=== PATIENT | male | born 1955 | race Caucasian/White ===

== ENCOUNTER 2018-11-28 22:47 | Observation (INO) | payer MEDICARE, OTHER, SELFPAY ==
--- NOTE | 2018-11-28 23:24 | RAD ---
XR Chest 1 View Portable HISTORY: Chest pain and shortness of breath COMPARISON: 11/30/2015 study FINDINGS: Heart size within normal limits. Postop sternotomy changes are present. The lungs are clear of infiltrates. No signs of failure. IMPRESSION: No active intrathoracic disease.
[2018-11-28] MEDS ORDERED: Lorazepam 2 MG/ML VIAL ONE (23:28)
[2018-11-28 23:38] LABS: #Lymphocytes 0.7 thou/uL (1.20-3.40); #Monocytes 0.7 thou/uL (0.11-0.59); #Neutrophils 6.3 thou/uL (1.40-6.50); %Basophils 0.4 % (0.0-1.0); %Eosinophils 0.5 % (0.0-10.0); %Lymphocytes 9.4 % (21.0-51.0); %Monocytes 9.4 % (0.0-10.0); %Neutrophils 80.4 % (42.0-75.0); Hemoglobin 13.7 g/dL (14.0-18.0); Mean Corpuscular HGB CONC 34.8 g/dL (32.0-36.0); Mean Corpuscular Hemoglobin 35.4 pg (27.0-31.0); Mean Platelet Volume 5.9 fL (7.4-10.4); Platelet Count 188 thou/uL (130-400); RBC Distribution Width 11.4 % (11.5-14.5); Red Blood Cell (RBC) Count 3.86 mill/uL (4.70-6.10); White Blood Cell (WBC) Count 7.8 thou/uL (4.8-10.8)
[2018-11-28] MEDS ORDERED: Multivitamins, Adult 10 ML, Thiamine HCl 100 MG, Folic Acid 1 MG in Dextrose 5 %-0.45 %... IV SCH (23:45)
[2018-11-28 23:58] LABS: ALT (SGPT) 32 U/L (8-55); AST (SGOT) 59 U/L (5-34); Alkaline Phosphatase 130 U/L (40-110); Anion Gap 17 mmol/L (10-20); BUN (Urea Nitrogen) 10 mg/dL (8.4-25.7); Bilirubin, Total 1.5 mg/dL (0.2-1.2); CK (CPK) 135 U/L (30-200); Calc. Creatinine Clearance 0 mL/min (70-130); Calcium 9.4 mg/dL (7.8-10.44); Carbon Dioxide 20 mmol/L (23-31); Chloride 103 mmol/L (98-107); Estimated GFR-MDRD 56; Globulin 2.7 g/dL (2.4-3.5); Glucose 127 mg/dL (80-115); Potassium 4.1 mmol/L (3.5-5.1); Protein, Total 6.7 g/dL (5.8-8.1); Sodium 136 mmol/L (136-145)
[2018-11-29] MEDS ORDERED: Aspirin 325 MG TAB ONE (02:17)
[2018-11-29 03:14] LABS: Troponin I 0.015 ng/mL (< 0.028)
[2018-11-29 04:31] VITALS: BMI 20.2
[2018-11-29] MEDS ORDERED: Acetaminophen 325 MG TAB PO PRN (04:40)
--- NOTE | 2018-11-29 05:34 | PDOC.FPRHP ---
- History of Present Illness Chief Complaint: Chest Pain History of Present Illness: Pt is a 63 yo male with PMH significant for cardiac bypass 20 years ago, alcohol abuse, and has not seen a PCP, ssis ssrs developer in multiple years who presents with a 6 month history of dyspnea and chest pain. Pt states earlier in the evening he got into an argument with his who has a psych illness. EMS was called and decided pt did not look well. Pt agreed to being seen in the ED. He states his symptoms have been ongoing for 6 months and becomes dyspneic with exertion. He endorsed chest pain after further questioning. It is substernal in nature, non-radiating, pressure-like. Pt did not become diaphoretic, N/V. He states he has had this chest pain off and on for quite some time but could not give exact time scale. ED Course: In the ED he was found to have normal vitals. EKG, CXR WNL. Trop 0.02. He did have an elevated AST. Pt given banana bag, ativan and aspirin. - Allergies/Adverse Reactions Allergies Allergy/AdvReac Type Severity Reaction Status Date / Time No Known Drug Allergies Allergy Verified 06/24/16 22:32 - Home Medications Medication Instructions Recorded Confirmed Type Multivitamin [Daily Vitamin 1 each PO DAILY #90 tablet 06/28/16 11/29/18 Rx Formula] Aspirin [Ecotrin Low Strength] 81 mg PO DAILY #30 tab 11/29/18 Rx Atorvastatin Calcium [Lipitor] 40 mg PO HS #30 tab 11/29/18 Rx - History PMHx: hx of cardiac bypass 20 years ago PSHx: cardiac bypass FHx: none Social: alcohol abuse, hx of tobacco use 20 yrs ago, denies drug use - Review of Systems General: denies: fever/chills, weight/appetite/sleep changes, night sweats ENT: denies: nasal congestion, rhinorrhea Respiratory: reports: shortness of breath, exercise intolerance. denies: cough , congestion Cardiovascular: reports: chest pain. denies: palpitation, edema, orthopnea Gastrointestinal: denies: nausea, vomiting, diarrhea, constipation, abdominal pain Genitourinary: denies: dysuria, polyuria Skin: denies: rashes, lesions Musculoskeletal: denies: pain, stiffness Neurological: denies: numbness, syncope, seizure Psychological: reports: anxiety - Vital signs BP: [134/96] HR: [77] RR: [26] Tmax: [] Pox: [100]% on [RA] Wt: [63.9 kg] - Physical Exam Constitutional: NAD, awake, alert and oriented HEENT: normocephalic and atraumatic, EOMI Neck: FROM, trachea midline Chest: no-tender to palpation, no lesions Heart: RRR, normal S1/S2, no murmurs/rubs/gallops, pulses present, no edema Lungs: CTAB, no respiratory distress, good air movement, no wheezing Musculoskeletal: normal structure, ROM grossly normal Neurological: no focal deficit, CN II-XII intact -Neurological: shooting pains in legs Skin: no rash/lesions, capillary refill <2 seconds Heme/Lymphatic: no purpura, no petechia Psychiatric: good judgment and insight, intact recent and remote memory FMR H&P: Results - Labs Result Diagrams: 11/28/18 23:29 11/29/18 08:38 Lab results: WBC 7.8 thou/uL (4.8-10.8) 11/28/18 23:29 Hgb 13.7 g/dL (14.0-18.0) L 11/28/18 23:29 Hct 39.2 % (42.0-52.0) L 11/28/18 23:29 MCV 101.0 fL (78.0-98.0) H 11/28/18 23:29 Plt Count 188 thou/uL (130-400) 11/28/18 23:29 Neutrophils % 80.4 % (42.0-75.0) H 11/28/18 23:29 Sodium 136 mmol/L (136-145) 11/28/18 23:29 Potassium 4.1 mmol/L (3.5-5.1) 11/28/18 23:29 Chloride 103 mmol/L (98-107) 11/28/18 23:29 Carbon Dioxide 20 mmol/L (23-31) L 11/28/18 23:29 BUN 10 mg/dL (8.4-25.7) 11/28/18 23:29 Creatinine 1.29 mg/dL (0.7-1.3) 11/28/18 23:29 Glucose 127 mg/dL (80-115) H 11/28/18 23:29 Calcium 9.4 mg/dL (7.8-10.44) 11/28/18 23:29 Total Bilirubin 1.5 mg/dL (0.2-1.2) H 11/28/18 23:29 AST 59 U/L (5-34) H 11/28/18 23:29 ALT 32 U/L (8-55) 11/28/18 23:29 Alkaline Phosphatase 130 U/L (40-110) H 11/28/18 23:29 Creatine Kinase 135 U/L (30-200) 11/28/18 23:29 B-Natriuretic Peptide 73.3 pg/mL (0-100) 11/28/18 23:29 Serum Total Protein 6.7 g/dL (5.8-8.1) 11/28/18 23: Albumin 4.0 g/dL (3.4-4.8) 11/28/18 23:29 FMR H&P: A/P - Problem List (1) Anxiety Status: Acute Code(s): F41.9 - ANXIETY DISORDER, UNSPECIFIED (2) Elevated AST (SGOT) Status: Acute Code(s): R74.0 - NONSPEC ELEV OF LEVELS OF TRANSAMNS & LACTIC ACID DEHYDRGNSE (3) Chest pain Status: Acute Code(s): R07.9 - CHEST PAIN, UNSPECIFIED (4) Hx of cardiac arrest Status: Acute Code(s): Z86.74 - PERSONAL HISTORY OF SUDDEN CARDIAC ARREST (5) Hx of heart bypass surgery Status: Acute Code(s): Z95.1 - PRESENCE OF AORTOCORONARY BYPASS GRAFT (6) Alcohol abuse Status: Chronic Code(s): F10.10 - ALCOHOL ABUSE, UNCOMPLICATED - Plan Pt is a 63 yo male with PMH significant for cardiac bypass 20 years ago who presents for shortness of breath and chest pain. # Chest Pain # Hx of cardiac bypass Atypical in nature. Pt says pain in chronic, comes and goes often. He has hx of cardiac bypass but does not follow up with PCP or Production Sampler. - Given aspirin in the Emergency Department - Will defer treatment/work up to day team as pt is stable at this time. Pt is NPO at this time depending on workup. - Consider LFT's - admit to tele # Anxiety Ativan given in ED. Remained mildly anxious on exam. - monitor, consider atarax # Hx of Alcohol Abuse # Neuropathy Neuropathy possibly secondary to chronic alcohol use. - pending alcohol level - ASE protocal initiated - banana bag in ED Diet: NPO Fluids: None VTE Prophylaxis: SCD's Code Status : full Dispo: Pt is stable, admit for observation of chest pain. FMR H&P: Upper Level - Pertinent history 63 yo M w/ PMH of cad and cabg >20 years ago presents to ED with cc of 6 month h /o sob. Pt denies any exaerbating or remitting factors. Reports he was fighithing with his this evening and became acutely more sob. Some mild left sided chest pressure. Some occasional Nausea. No fever, chills SOB. Workup in the ED was benign and troponins were negative x2. EKQ was WNL. - Pertinent findings ROS: As above PE: GenL NAD resting comfortably in bed HEENT: NCAT CV: RRR No MRG, no jvd or hepatojugular reflux Resp:Ctabl no wrr Abd: soft NTND bsx4 Extremities: No edema Neuo: No focal deficit - Plan Date/Time: 11/29/18 2941 I, Ck Lozano, , have evaluated this patient and agree with findings/ plan as outlined by sport intern resident. Pertinent changes/additions are listed here. 1) Atypical chest pain - trend trops - consider am stress and echo although no findings concerning for HF or overload 2) CAD - intiate HI statin 3) h/o alcohol abuse - check alcohol level, last reported drink 3 weeks ago - ase protocol Dispo: stable, admit to trend trops and consider am stress and echo. Addendum - Attending - Attending Attestation Date/Time: 11/29/18 0942 I personally evaluated the patient and discussed the management with Dr. Pearson. I agree with the History, Examination, Assessment and Plan documented above with any addition or exceptions noted below. The patient presents with substernal non-radiating chest pain after a stressful event with his . He will have a stress test. EKG normal. AST elevated, will check ruq ultrasound. If stress is negative can likely dc home.
[2018-11-29 06:13] LABS: Troponin I 0.023 ng/mL (< 0.028)
--- NOTE | 2018-11-29 06:14 | PDOC.FM ---
- Objective Vital Signs & Weight: Vital Signs (12 hours) Pulse Resp BP Pulse Ox 11/29/18 04:31 74 18 155/88 H 94 L Weight Weight 63.957 kg Result Diagrams: 11/28/18 23:29 11/28/18 23:29 Dx/Plan (1) Elevated transaminase level Code(s): R74.0 - NONSPEC ELEV OF LEVELS OF TRANSAMNS & LACTIC ACID DEHYDRGNSE Status: Acute (2) Alcohol abuse Code(s): F10.10 - ALCOHOL ABUSE, UNCOMPLICATED Status: Chronic (3) CAD (coronary artery disease) Code(s): I25.10 - ATHSCL HEART DISEASE OF [place] CORONARY ARTERY W/O ANG PCTRS Status: Chronic Qualifiers: Coronary Disease-Associated Artery/Lesion type: [place] artery [place] vs. transplanted heart: [place] heart Associated angina: angina presence unspecified Qualified Code(s): I25.10 - Atherosclerotic heart disease of [place] coronary artery without angina pectoris (4) History of - coronary artery bypass grafting Code(s): Z95.1 - PRESENCE OF AORTOCORONARY BYPASS GRAFT Status: Chronic - Plan Plan: Atypical chest pain - Trops negative x3 - BNP < 100 - Considering pt's sx over the past several months and last night as well as his hx of CABG will get stress and echo today Coronary Artery Disease - Pt not taking any rx - intiate HI statin H/o alcohol abuse - Alcohol level upon presentation <10 - ASE protocol Diet: NPO VTE: SCD Dispo: Tele obs for stress and echo.
[2018-11-29 08:54] LABS: Hemoglobin A1c 5.4 % (4.0-6.0)
[2018-11-29] MEDS ORDERED: Aspirin 81 mg Enteric Coated Tablet PO SCH (09:00)
[2018-11-29] MEDS ORDERED: Multivitamin W/ Minerals 1 TAB PO SCH (09:00)
[2018-11-29 09:06] LABS: Anion Gap 11 mmol/L (10-20); BUN (Urea Nitrogen) 10 mg/dL (8.4-25.7); Calc. Creatinine Clearance 63 mL/min (70-130); Carbon Dioxide 25 mmol/L (23-31); Cardiac Risk 2.2 (Less than 4.5); Chloride 104 mmol/L (98-107); Cholesterol 119 mg/dl (< 200 Desired); Estimated GFR-MDRD 70; Glucose 101 mg/dL (80-115); HDL Cholesterol 54 mg/dL (>60 Neg Risk); LDL Cholesterol, Calculated 49 mg/dL; Potassium 3.8 mmol/L (3.5-5.1); Sodium 136 mmol/L (136-145); Triglycerides 82 mg/dL (Less than 150)
[2018-11-29 09:59] LABS: Bilirubin, Direct 0.8 mg/dL (0.1-0.3); Bilirubin, Total 1.5 mg/dL (0.2-1.2)
[2018-11-29] MEDS ORDERED: Regadenoson 0.4 MG/5 ML SYRINGE ONE (11:06)
--- NOTE | 2018-11-29 13:02 | NM ---
NM Cardiac Stress W EF WF HISTORY: Shortness of breath. History of previous bypass. COMPARISON: None. FINDINGS: Examination is performed using 33.0 mCi 90 9M technetium sestamibi on the stress and 9.6 mC i on the rest. This shows a fairly normal distribution of radiopharmaceutical without signs of ischemia or scar. Wall motion: There is symmetric contractility to the ventricle. Left ventricular ejection fraction: The calculated left ventricular ejection fraction was 71%. IMPRESSION: Unremarkable myocardial perfusion scan.
--- NOTE | 2018-11-29 13:46 | ULT ---
ULTRASOUND GALLBLADDER RIGHT UPPER QUADRANT: HISTORY: Elevated liver function tests. COMPARISON: Gallbladder ultrasound from 2017. FINDINGS: Real-time, ortega scale, and color evaluation of the right upper quadrant of the abdomen was performed. There is a coarsened hepatic echotexture without mass appreciated. There is cholelithiasis. No gallbladder wall thickening. The right kidney measures 10.7 x 5.8 x 5.5 cm with some small cysts interpolar right kidney. Common bile duct is unable to be visualized. Portal vein is not well seen. IMPRESSION: 1. Limited examination stated by the technologist due to lack of cooperation by the patient. 2. Increased hepatic echotexture with some coarsening suggesting cirrhosis. 3. Cholelithiasis. 4. Small right renal cyst. POS: [facility]
[2018-11-29 16:55] VITALS: BP 120/85; TEMP 99.7
[2018-11-29] MEDS ORDERED: Atorvastatin Calcium 40 MG TAB PO SCH (21:00)
--- NOTE | 2018-11-30 00:46 | DIS ---
DATE OF ADMISSION: 11/29/2018 DATE OF DISCHARGE: 11/29/2018 ADMITTING ATTENDING: Carlos Mayer MD RESIDENT: Andriy Riley DO CONSULTS: None. PROCEDURES PERFORMED: None. PRIMARY DIAGNOSES: Atypical chest pain, history of coronary artery bypass grafting. SECONDARY DIAGNOSES: Hypertension, alcohol abuse. DISCHARGE MEDICATIONS: 1. Aspirin 81 mg daily. 2. Atorvastatin 40 mg daily. 3. Multivitamin one tablet daily. HOSPITAL COURSE: A 63-year-old male presented to the ED complaining of shortness of breath. The patient was brought to the ED by EMS after an altercation with the patient's , who suffers from a psychotic psychiatric disorder. The patient stated that he was very worked up during altercation and became short of breath. While in the ED, the patient mentioned having substernal chest pain and a cardiac workup was initiated. The patient was subsequently admitted to the hospital for further cardiac rule out due to history of cardiac arrest and CABG 15 years ago. Inpatient workup included troponins that were negative x3, EKG without acute findings, stress test negative for ACS. Incidental findings of elevated bilirubin and alk phos were addressed with right upper quadrant ultrasound. Imaging was limited due to patient's noncooperation with the test. Ultrasound noted cholelithiasis without gallbladder wall thickening or pericholecystic fluid. Common bile duct was unable to be visualized. The patient remained free of shortness of breath or chest pain throughout his stay. It highly suggest that the patient followup on an outpatient basis for his chronic medical conditions and routine followup. The patient was started on 81 mg of aspirin, 40 mg of atorvastatin. He is taking these every day as indicated by the patient's previous history of cardiac arrest and CABG. The patient was instructed on return precautions and voiced understanding prior to discharge. DISPOSITION: Stable. DISCHARGE INSTRUCTIONS: 1. Location: Home. 2. Diet: Heart healthy. 3. Activity: As tolerated. 4. Followup: PCP to establish with Dr. Mayer in 7 days. Job ID: [id number] MTDD
--- NOTE | 2018-12-02 08:52 | STRESS ---
Acquisition Time: 2018-11-29 11:19:25 Total Exercise Time: 00:01:00 Test Indications: CHEST PAIN Medications: Protocol: LEXISCAN Max HR: 121 BPM 78% of Pred: 155 BPM Max BP: 106/062 mmHG Max Work Load: 1.0 METS RESTING ECG: NORMAL SINUS RHYTHM AT 95 BPM WITH LEFT AXIS DEVIATION, INTRAVENTRICULAR CONDUCTION DELAY, AND POOR R-WAVE PROGRESSION SYMPTOMS: NONE NORMAL BP RESPONSE ECTOPY: NONE ECG STRESS: NO SIGNIFICANT CHANGES INTERPRETATION: NEGATIVE ECG/AWAIT NUCLEAR IMAGES FOR DEFINITIVE DIAGNOSIS Confirmed by DEANNA COMBS ([id number]) on 12/02/2018 8:51:49 AM Referred By: MD Ivory ANDREWS Confirmed By:DEANNA COMBS
--- NOTE | 2018-12-04 10:48 | EKG ---
Test Reason : CHEST HEAVINESS Blood Pressure : / mmHG Vent. Rate : 100 BPM Atrial Rate : 100 BPM P-R Int : 152 ms QRS Dur : 104 ms QT Int : 342 ms P-R-T Axes : 026 -46 062 degrees QTc Int : 441 ms Normal sinus rhythm Left axis deviation Abnormal ECG Confirmed by GABRIEL ARRIAGA, ARIEL Chirinos ([id number]), script editor BERENICE VALDOVINOS ([id number]) on 12/04/2018 10:47:57 AM Referred By: Confirmed By:ARIEL RIOS MD
== END 2018-11-29 17:21 | disposition home or self-care (01) ==
LOC: ERS 22:47 → 2SW 11-29 02:30
PROVIDERS: ADMIT Family Medicine; ATTEND Family Medicine
DX: R07.89 Other chest pain (principal); R06.09 Other forms of dyspnea; F41.9 Anxiety disorder, unspecified; R74.0 Nonspecific elevation of levels of transaminase and lactic acid dehydrogenase [LDH]; F10.10 Alcohol abuse, uncomplicated; G62.9 Polyneuropathy, unspecified; Z86.74 Personal history of sudden cardiac arrest; Z87.891 Personal history of nicotine dependence; Z95.1 Presence of aortocoronary bypass graft
CPT/HCPCS: 71045; 76705; 78452; 80048; 80053; 80061; 80307; 82247; 82550; 83036; 83880; 84484 ×3; 85025; 93005; 93017; 93306; 94760; 96365; 96366; 96375; 99285; A9500; G0378 ×2; 36415; J2060; J2785; J3411; J7042

== ENCOUNTER 2018-12-01 08:16 | Emergency (ER) | payer MEDICARE ==
[2018-12-01] MEDS ORDERED: Ketorolac Tromethamine 30 MG/ML VIAL ONE (08:40)
[2018-12-01 09:29] LABS: ALT (SGPT) 17 U/L (8-55); AST (SGOT) 25 U/L (5-34); Alkaline Phosphatase 108 U/L (40-110); Anion Gap 18 mmol/L (10-20); BUN (Urea Nitrogen) 13 mg/dL (8.4-25.7); Bilirubin, Total 1.5 mg/dL (0.2-1.2); Calc. Creatinine Clearance 0 mL/min (70-130); Calcium 9.4 mg/dL (7.8-10.44); Carbon Dioxide 21 mmol/L (23-31); Chloride 100 mmol/L (98-107); Estimated GFR-MDRD 53; Globulin 3.2 g/dL (2.4-3.5); Glucose 108 mg/dL (80-115); Potassium 4.1 mmol/L (3.5-5.1); Protein, Total 7.2 g/dL (5.8-8.1); Sodium 135 mmol/L (136-145)
--- NOTE | 2018-12-01 09:37 | RAD ---
RIGHT FOOT 3 VIEWS: Date: 12/01/18 PROVIDED CLINICAL HISTORY: Right foot pain. FINDINGS: Comparison with 12/15/13. No evidence for fracture or other acute osseous abnormality. If there is persistent clinical concern, conservative management and follow-up imaging are advised. IMPRESSION: As above. POS: [facility]
--- NOTE | 2018-12-01 09:49 | RAD ---
LEFT FOOT 3 VIEWS: Date: 12/01/18 PROVIDED CLINICAL HISTORY: Left foot pain. FINDINGS: Comparison with 09/15/15. There is no evidence for fracture or other acute osseous abnormality. If there is persistent clinical concern, conservative management and follow-up imaging are advised. IMPRESSION: As above. POS: [facility]
[2018-12-01] MEDS ORDERED: HYDROcodone/Acetaminophen 5/325 mg Tablet ONE (10:02)
[2018-12-01 11:06] LABS: #Lymphocytes 0.8 thou/uL (1.20-3.40); #Monocytes 1.6 thou/uL (0.11-0.59); #Neutrophils 10.4 thou/uL (1.40-6.50); %Eosinophils 0.1 % (0.0-10.0); %Lymphocytes 6.2 % (21.0-51.0); %Monocytes 12.3 % (0.0-10.0); %Neutrophils 81.3 % (42.0-75.0); Mean Corpuscular HGB CONC 34.9 g/dL (32.0-36.0); Mean Corpuscular Hemoglobin 34.8 pg (27.0-31.0); Mean Corpuscular Volume 99.7 fL (78.0-98.0); Mean Platelet Volume 6.1 fL (7.4-10.4); Platelet Count 173 thou/uL (130-400); RBC Distribution Width 11.4 % (11.5-14.5); Red Blood Cell (RBC) Count 3.73 mill/uL (4.70-6.10); White Blood Cell (WBC) Count 12.7 thou/uL (4.8-10.8)
[2018-12-01] MEDS ORDERED: Morphine 4 MG/ML VIAL ONE (11:18)
== END 2018-12-01 19:29 | disposition home or self-care (01) ==
LOC: ERS 08:16
DX: G62.9 Polyneuropathy, unspecified (principal); F32.9 Major depressive disorder, single episode, unspecified
CPT/HCPCS: 36415; 80053; 85025; 96361; 96374; 96375; J1885; J2270

== ENCOUNTER 2021-07-10 07:05 | Emergency (ER) | payer MEDICARE ==
[2021-07-10] MEDS ORDERED: Midazolam HCl 5 mg/ml Vial ONE (07:23)
[2021-07-10] MEDS ORDERED: Morphine 10 MG/ML VIAL ONE (07:23)
== END 2021-07-10 08:52 | disposition home or self-care (01) ==
LOC: ERS 07:05
DX: M54.50 Low back pain, unspecified (principal); I25.10 Atherosclerotic heart disease of native coronary artery without angina pectoris
CPT/HCPCS: 96372; 99283; J2250; J2270

== ENCOUNTER 2021-10-28 11:05 | Inpatient (IN) | payer MEDICARE ==
[~2021-10-28 11:05] MED LIST: Iopamidol-370 76% 500 ML 1 ML ONE
[2021-10-28] MEDS ORDERED: Ondansetron PF 4 MG/2 ML Vial ONE ×2 (11:21→11:41)
[2021-10-28 11:54] LABS: #Basophils 0.1 thou/uL (0.0-0.2); #Monocytes 0.8 thou/uL (0.11-0.59); #Neutrophils 7.4 thou/uL (1.40-6.50); %Basophils 0.6 % (0.0-1.0); %Eosinophils 0.4 % (0.0-10.0); %Lymphocytes 10.5 % (21.0-51.0); %Neutrophils 79.5 % (42.0-75.0); Hemoglobin 13.4 g/dL (14.0-18.0); Mean Corpuscular HGB CONC 32.4 g/dL (32.0-36.0); Mean Corpuscular Hemoglobin 33.2 pg (27.0-31.0); Mean Platelet Volume 5.6 fL (7.4-10.4); Platelet Count 338 thou/uL (130-400); RBC Distribution Width 11.4 % (11.5-14.5); Red Blood Cell (RBC) Count 4.03 mill/uL (4.70-6.10); White Blood Cell (WBC) Count 9.3 thou/uL (4.8-10.8)
[2021-10-28 12:16] LABS: ALT (SGPT) 20 U/L (8-55); AST (SGOT) 44 U/L (5-34); Albumin 3.9 g/dL (3.4-4.8); Alkaline Phosphatase 139 U/L (40-110); Anion Gap 19 mmol/L (10-20); BUN (Urea Nitrogen) 13 mg/dL (8.4-25.7); Bilirubin, Total 0.7 mg/dL (0.2-1.2); Calc. Creatinine Clearance 0 mL/min (70-130); Calcium 9.5 mg/dL (7.8-10.44); Carbon Dioxide 18 mmol/L (23-31); Chloride 101 mmol/L (98-107); Estimated GFR 52; Globulin 3.9 g/dL (2.4-3.5); Glucose 132 mg/dL (80-115); Lipase 6 U/L (8-78); Magnesium 1.5 mg/dL (1.6-2.6); Potassium 4.4 mmol/L (3.5-5.1); Protein, Total 7.8 g/dL (5.8-8.1); Sodium 134 mmol/L (136-145)
[2021-10-28 12:17] LABS: Acetaminophen Less than 10.0 mcg/mL (10.0-30.0); Alcohol 61 mg/dL (Less than 10); Salicylate Less than 8.0 mg/dL (15.0-30.0)
[2021-10-28] MEDS ORDERED: Magnesium 2 GM/50 ML BAG (IN WATER) ONE (12:28)
[2021-10-28] MEDS ORDERED: diphenhydrAMINE 50 MG/ML VIAL ONE (13:19)
[2021-10-28] MEDS ORDERED: Metoclopramide HCl 10 MG/2 ML VIAL ONE (13:19)
[2021-10-28 13:20] LABS: Bilirubin Negative (Negative); Blood, Urine Negative (Negative); Clarity Clear (Clear); Glucose, Urine (Dipstick) Normal (Negative); Ketone, Urine Negative (Negative); Leukocyte Negative Leu/uL (Negative); Nitrite Negative (Negative); Protein, Urine (Dipstick) Negative (Neg-Trace); Specific Gravity, Urine 1.009 (1.002-1.036); Urobilinogen Normal mg/dL (Less than 2)
[2021-10-28 13:24] LABS: Amphetamine Not Detected (NotDetected); Barbiturates Screen Not Detected (NotDetected); Benzodiazepine Screen Not Detected (NotDetected); Cocaine Metabolite Screen Not Detected (NotDetected); Methadone Not Detected (NotDetected); Methamphetamine Not Detected (NotDetected); Opiate Screen Not Detected (NotDetected); Oxycodone Screen Not Detected (NotDetected); Phencyclidine (PCP) Not Detected (NotDetected); THC/Cannabinoid Screen Not Detected (NotDetected); Tricyclic Screen Not Detected (NotDetected)
[2021-10-28] MEDS ORDERED: Ketorolac Tromethamine 30 MG/ML VIAL ONE (14:20)
[2021-10-28] MEDS ORDERED: Electrolyte Replacement Protocol 1 EACH FS SCH (15:15)
[2021-10-28 15:22] LABS: Lactic Acid 1.9 mmol/L (0.5-2.2)
[2021-10-28] MEDS ORDERED: chlordiazePOXIDE HCl 25 MG CAP PO SCH ×2 (15:23→18:00)
[2021-10-28] MEDS ORDERED: Multivit, Therapeutic 1 TAB PO SCH (15:30)
[2021-10-28] MEDS ORDERED: Folic Acid 1 MG TAB PO SCH (15:30)
[2021-10-28 15:48] LABS: INR-International Normal Ratio 0.9; PTT 32.3 sec (22.9-36.1); Prothrombin Time 12.7 sec (12.0-14.7)
[2021-10-28 16:03] VITALS: BMI 20.2
[2021-10-28] MEDS: Lactated Ringer's 1,000 ML IV SCH (16:34)
[2021-10-28 16:38] LABS: SARS-CoV-2 NAA Rapid Test Not Detected (NotDetected)
[2021-10-28 18:39] LABS: Hemoglobin A1c 5.3 % (4.0-6.0)
[2021-10-28] MEDS: Thiamine HCl 200 MG/2 ML VIAL SLOW IVP SCH (21:19)
[2021-10-28] MEDS: chlordiazePOXIDE HCl 25 MG CAP PO SCH (21:20)
[2021-10-29] MEDS: Lactated Ringer's 1,000 ML IV SCH ×2 (02:58→12:50)
[2021-10-29] MEDS: chlordiazePOXIDE HCl 25 MG CAP PO SCH ×4 (04:04→22:00)
[2021-10-29 06:11] LABS: #Eosinphils 0.2 thou/uL (0.0-0.7); #Lymphocytes 0.9 thou/uL (1.20-3.40); #Monocytes 0.8 thou/uL (0.11-0.59); #Neutrophils 5.9 thou/uL (1.40-6.50); %Basophils 0.5 % (0.0-1.0); %Eosinophils 2.6 % (0.0-10.0); %Monocytes 10.5 % (0.0-10.0); %Neutrophils 74.5 % (42.0-75.0); Hemoglobin 11.5 g/dL (14.0-18.0); Mean Corpuscular HGB CONC 34.1 g/dL (32.0-36.0); Mean Corpuscular Hemoglobin 35.1 pg (27.0-31.0); Mean Platelet Volume 5.6 fL (7.4-10.4); Platelet Count 256 thou/uL (130-400); RBC Distribution Width 11.4 % (11.5-14.5); Red Blood Cell (RBC) Count 3.29 mill/uL (4.70-6.10); White Blood Cell (WBC) Count 7.9 thou/uL (4.8-10.8)
[2021-10-29 06:26] LABS: Phosphorus 2.3 mg/dL (2.3-4.7)
[2021-10-29 06:42] LABS: ALT (SGPT) 14 U/L (8-55); AST (SGOT) 27 U/L (5-34); Albumin 3.1 g/dL (3.4-4.8); Alkaline Phosphatase 119 U/L (40-110); Anion Gap 14 mmol/L (10-20); BUN (Urea Nitrogen) 14 mg/dL (8.4-25.7); Bilirubin, Total 1.4 mg/dL (0.2-1.2); Calc. Creatinine Clearance 51 mL/min (70-130); Calcium 8.5 mg/dL (7.8-10.44); Carbon Dioxide 20 mmol/L (23-31); Chloride 107 mmol/L (98-107); Estimated GFR 63; Globulin 2.6 g/dL (2.4-3.5); Glucose 85 mg/dL (80-115); Magnesium 1.8 mg/dL (1.6-2.6); Potassium 4.6 mmol/L (3.5-5.1); Protein, Total 5.7 g/dL (5.8-8.1); Sodium 136 mmol/L (136-145)
[2021-10-29] MEDS: Folic Acid 1 MG TAB PO SCH (08:27)
[2021-10-29] MEDS: Pantoprazole 40 MG VIAL IVP SCH (08:27)
[2021-10-29] MEDS: Multivit, Therapeutic 1 TAB PO SCH (08:27)
[2021-10-29] MEDS: Ondansetron ODT 4 MG TAB PO PRN ×2 (08:27→16:08)
[2021-10-29] MEDS: Amlodipine 5 MG TAB PO SCH (10:31)
[2021-10-29] MEDS ORDERED: Gabapentin 300 MG CAP PO SCH ×2 (12:00→22:00)
[2021-10-29] MEDS: Thiamine HCl 200 MG/2 ML VIAL SLOW IVP SCH (16:08)
[2021-10-29] MEDS: Gabapentin 300 MG CAP PO SCH (21:59)
[2021-10-30] MEDS: Lactated Ringer's 1,000 ML IV SCH ×3 (00:29→16:16)
[2021-10-30] MEDS: chlordiazePOXIDE HCl 25 MG CAP PO SCH (05:37)
[2021-10-30] MEDS: Gabapentin 300 MG CAP PO SCH ×2 (08:46→21:26)
[2021-10-30] MEDS: Folic Acid 1 MG TAB PO SCH (08:46)
[2021-10-30] MEDS: Pantoprazole 40 MG VIAL IVP SCH (08:46)
[2021-10-30] MEDS: Cyanocobalamin (Vitamin B-12) 1,000 MCG TAB PO SCH (08:46)
[2021-10-30] MEDS: Multivit, Therapeutic 1 TAB PO SCH (08:46)
[2021-10-30] MEDS: Amlodipine 5 MG TAB PO SCH (08:46)
[2021-10-30] MEDS: Ondansetron ODT 4 MG TAB PO PRN (09:29)
[2021-10-30] MEDS ORDERED: Promethazine 25 MG TAB PO PRN (11:12)
[2021-10-30] MEDS: Thiamine HCl 200 MG/2 ML VIAL SLOW IVP SCH (16:15)
[2021-10-30 18:22] LABS: #Eosinphils 0.2 thou/uL (0.0-0.7); #Lymphocytes 0.9 thou/uL (1.20-3.40); #Neutrophils 6.3 thou/uL (1.40-6.50); %Basophils 0.2 % (0.0-1.0); %Eosinophils 1.9 % (0.0-10.0); %Lymphocytes 10.8 % (21.0-51.0); %Monocytes 11.7 % (0.0-10.0); %Neutrophils 75.4 % (42.0-75.0); Hemoglobin 10.9 g/dL (14.0-18.0); Mean Corpuscular HGB CONC 34.5 g/dL (32.0-36.0); Mean Corpuscular Hemoglobin 35.5 pg (27.0-31.0); Platelet Count 217 thou/uL (130-400); RBC Distribution Width 11.2 % (11.5-14.5); Red Blood Cell (RBC) Count 3.08 mill/uL (4.70-6.10); White Blood Cell (WBC) Count 8.3 thou/uL (4.8-10.8)
[2021-10-30 18:42] LABS: Magnesium 1.3 mg/dL (1.6-2.6); Phosphorus 2.4 mg/dL (2.3-4.7)
[2021-10-30 18:43] LABS: ALT (SGPT) 9 U/L (8-55); AST (SGOT) 19 U/L (5-34); Albumin 2.8 g/dL (3.4-4.8); Alkaline Phosphatase 105 U/L (40-110); Anion Gap 16 mmol/L (10-20); BUN (Urea Nitrogen) 9 mg/dL (8.4-25.7); Bilirubin, Total 0.6 mg/dL (0.2-1.2); Calc. Creatinine Clearance 49 mL/min (70-130); Carbon Dioxide 21 mmol/L (23-31); Chloride 103 mmol/L (98-107); Estimated GFR 60; Globulin 2.5 g/dL (2.4-3.5); Glucose 203 mg/dL (80-115); Potassium 3.8 mmol/L (3.5-5.1); Protein, Total 5.3 g/dL (5.8-8.1); Sodium 136 mmol/L (136-145)
[2021-10-30] MEDS ORDERED: Magnesium 2 GM/50 ML(in water) 2 GM in Premix Bag 1 BAG IVPB SCH (21:00)
[2021-10-30] MEDS ORDERED: chlordiazePOXIDE HCl 25 MG CAP PO SCH (21:00)
[2021-10-31 06:42] LABS: #Eosinphils 0.2 thou/uL (0.0-0.7); #Monocytes 1.1 thou/uL (0.11-0.59); #Neutrophils 6.8 thou/uL (1.40-6.50); %Basophils 0.3 % (0.0-1.0); %Eosinophils 1.7 % (0.0-10.0); %Lymphocytes 10.7 % (21.0-51.0); %Monocytes 12.2 % (0.0-10.0); Hemoglobin 11.6 g/dL (14.0-18.0); Mean Corpuscular HGB CONC 33.7 g/dL (32.0-36.0); Mean Corpuscular Hemoglobin 35.1 pg (27.0-31.0); Mean Platelet Volume 6.2 fL (7.4-10.4); Platelet Count 210 thou/uL (130-400); RBC Distribution Width 11.3 % (11.5-14.5); Red Blood Cell (RBC) Count 3.31 mill/uL (4.70-6.10); White Blood Cell (WBC) Count 9.1 thou/uL (4.8-10.8)
[2021-10-31 07:07] LABS: Phosphorus 2.7 mg/dL (2.3-4.7)
[2021-10-31 07:10] LABS: ALT (SGPT) 11 U/L (8-55); AST (SGOT) 18 U/L (5-34); Albumin 3.1 g/dL (3.4-4.8); Alkaline Phosphatase 111 U/L (40-110); Anion Gap 13 mmol/L (10-20); BUN (Urea Nitrogen) 10 mg/dL (8.4-25.7); Bilirubin, Total 0.6 mg/dL (0.2-1.2); Calc. Creatinine Clearance 46 mL/min (70-130); Calcium 8.8 mg/dL (7.8-10.44); Carbon Dioxide 24 mmol/L (23-31); Chloride 105 mmol/L (98-107); Estimated GFR 55; Globulin 2.6 g/dL (2.4-3.5); Glucose 127 mg/dL (80-115); Magnesium 1.8 mg/dL (1.6-2.6); Potassium 4.1 mmol/L (3.5-5.1); Protein, Total 5.7 g/dL (5.8-8.1); Sodium 138 mmol/L (136-145)
[2021-10-31] MEDS ORDERED: Acetaminophen 500 MG TAB PO SCH (09:00)
[2021-10-31] MEDS: Multivit, Therapeutic 1 TAB PO SCH (09:33)
[2021-10-31] MEDS: Amlodipine 5 MG TAB PO SCH (09:33)
[2021-10-31] MEDS: Cyanocobalamin (Vitamin B-12) 1,000 MCG TAB PO SCH (09:34)
[2021-10-31] MEDS: Gabapentin 300 MG CAP PO SCH (09:34)
[2021-10-31] MEDS: Folic Acid 1 MG TAB PO SCH (09:34)
[2021-10-31] MEDS ORDERED: predniSONE 20 MG TAB PO SCH (10:45)
[2021-10-31 15:57] VITALS: BP 106/70; TEMP 98.3
[2021-10-31] MEDS ORDERED: chlordiazePOXIDE HCl 25 MG CAP PO SCH (21:00)
== END 2021-10-31 17:27 | disposition home or self-care (01) | DRG 439 ==
LOC: ERS 11:05 → ERHOLD 14:16 → T4-A 18:15 → OBSVTOIN 10-29 17:29
PROVIDERS: ADMIT Student in an Organized Health Care Education/Training Program; ATTEND Student in an Organized Health Care Education/Training Program
DX: K86.1 Other chronic pancreatitis (principal); E87.1 Hypo-osmolality and hyponatremia; F10.239 Alcohol dependence with withdrawal, unspecified; N17.9 Acute kidney failure, unspecified; E87.2 Acidosis; N18.9 Chronic kidney disease, unspecified; D63.1 Anemia in chronic kidney disease; E83.42 Hypomagnesemia; I25.10 Atherosclerotic heart disease of native coronary artery without angina pectoris; Y90.3 Blood alcohol level of 60-79 mg/100 ml; E88.09 Other disorders of plasma-protein metabolism, not elsewhere classified
CPT/HCPCS: 36415; 71045; 74177; 80053; 80306; 80307; 81003; 82607; 83036; 83605; 83690; 83735; 83880; 84100; 84484; 84550; 85025; 85610; 85730; 87086; 93005; 96375; 96376; C9113; G0378; J1200; J1885; J2405; J2765; J3411; J3475; J7120; J7512; Q0162; Q0169; Q9967; U0002

== ENCOUNTER 2021-12-24 13:22 | Inpatient (IN) | payer MEDICARE ==
[2021-12-24 14:27] LABS: #Eosinphils 0.1 thou/uL (0.0-0.7); #Lymphocytes 0.9 thou/uL (1.20-3.40); #Monocytes 1.1 thou/uL (0.11-0.59); #Neutrophils 5.5 thou/uL (1.40-6.50); %Basophils 0.3 % (0.0-1.0); %Eosinophils 1.6 % (0.0-10.0); %Monocytes 14.2 % (0.0-10.0); %Neutrophils 71.9 % (42.0-75.0); Hemoglobin 13.1 g/dL (14.0-18.0); Mean Corpuscular HGB CONC 34.1 g/dL (32.0-36.0); Mean Corpuscular Hemoglobin 35.2 pg (27.0-31.0); Mean Platelet Volume 5.9 fL (7.4-10.4); Platelet Count 193 thou/uL (130-400); RBC Distribution Width 11.5 % (11.5-14.5); Red Blood Cell (RBC) Count 3.71 mill/uL (4.70-6.10); White Blood Cell (WBC) Count 7.6 thou/uL (4.8-10.8)
[2021-12-24 14:44] LABS: ALT (SGPT) 14 U/L (8-55); AST (SGOT) 34 U/L (5-34); Albumin 3.7 g/dL (3.4-4.8); Alkaline Phosphatase 169 U/L (40-110); Anion Gap 12 mmol/L (10-20); BUN (Urea Nitrogen) 7 mg/dL (8.4-25.7); Bilirubin, Total 0.5 mg/dL (0.2-1.2); Calc. Creatinine Clearance 0 mL/min (70-130); Calcium 8.8 mg/dL (7.8-10.44); Carbon Dioxide 23 mmol/L (23-31); Chloride 98 mmol/L (98-107); Estimated GFR 60; Globulin 3.4 g/dL (2.4-3.5); Glucose 122 mg/dL (80-115); Lipase 5 U/L (8-78); Potassium 4.1 mmol/L (3.5-5.1); Protein, Total 7.1 g/dL (5.8-8.1); Sodium 129 mmol/L (136-145)
[2021-12-24] MEDS ORDERED: Morphine 4 MG/ML VIAL ONE (16:40)
[2021-12-24] MEDS ORDERED: Ketorolac Tromethamine 30 MG/ML VIAL ONE (16:40)
[2021-12-24 17:15] LABS: Bilirubin Negative (Negative); Blood, Urine Negative (Negative); Clarity Clear (Clear); Glucose, Urine (Dipstick) Normal (Negative); Ketone, Urine Negative (Negative); Leukocyte Negative Leu/uL (Negative); Nitrite Negative (Negative); Protein, Urine (Dipstick) Negative (Neg-Trace); Specific Gravity, Urine 1.003 (1.002-1.036); Urobilinogen Normal mg/dL (Less than 2); pH, Urine 5.5 (5.0-9.0)
[2021-12-24 20:03] LABS: PTT 34.3 sec (22.9-36.1); Prothrombin Time 13.5 sec (12.0-14.7)
[2021-12-24] MEDS ORDERED: Acetaminophen 325 MG TAB PO PRN (20:25)
[2021-12-24] MEDS ORDERED: Ondansetron ODT 4 MG TAB PO PRN (20:56)
[2021-12-24] MEDS ORDERED: Polyethylene Glycol 3350 17 GM Packet PO PRN (21:12)
[2021-12-24] MEDS ORDERED: Lorazepam (BATCHED) 2 MG/ML SYR SLOW IVP SCH (21:15)
[2021-12-24] MEDS ORDERED: Midazolam HCl 2 mg/2 ml Vial SLOW IVP SCH (21:30)
[2021-12-24] MEDS: Ondansetron PF 4 MG/2 ML Vial IVP PRN (21:48)
[2021-12-24] MEDS: Morphine 4 MG/ML VIAL SLOW IVP PRN (21:50)
[2021-12-24] MEDS: cefTRIAXone\\ROCEPHIN 1 GM in Sodium Chloride 0.9% 100 ML IVPB SCH (21:51)
[2021-12-24 22:33] VITALS: BMI 20.2
[2021-12-24] MEDS: Lactated Ringer's 1,000 ML IV SCH (22:42)
[2021-12-24] MEDS: chlordiazePOXIDE HCl 25 MG CAP PO SCH (23:06)
[2021-12-25] MEDS: HYDROcodone/Acetaminophen 5/325 mg Tablet PO PRN (01:10)
[2021-12-25 02:42] LABS: SARS-CoV-2 NAA Rapid Test Not Detected (NotDetected)
[2021-12-25] MEDS: Lactated Ringer's 1,000 ML IV SCH ×3 (03:18→17:19)
[2021-12-25] MEDS: Morphine 4 MG/ML VIAL SLOW IVP PRN ×4 (03:18→21:20)
[2021-12-25] MEDS: chlordiazePOXIDE HCl 25 MG CAP PO SCH ×4 (05:27→23:10)
[2021-12-25 05:43] LABS: Band 6 % (5-11); Eosinophils 4 % (0-10); Hemoglobin 11.3 g/dL (14.0-18.0); Lymphocytes 16 % (21-51); MDiff Complete? YES; Mean Corpuscular HGB CONC 33.7 g/dL (32.0-36.0); Mean Corpuscular Hemoglobin 35.6 pg (27.0-31.0); Mean Platelet Volume 6.6 fL (7.4-10.4); Monocytes 11 % (0-10); Neutrophil 61 % (42-75); Platelet Count 161 thou/uL (130-400); RBC Distribution Width 11.7 % (11.5-14.5); Reactive Lymphocytes 2 % (0-10); Red Blood Cell (RBC) Count 3.18 mill/uL (4.70-6.10); White Blood Cell (WBC) Count 5.4 thou/uL (4.8-10.8)
[2021-12-25 06:10] LABS: ALT (SGPT) 12 U/L (8-55); AST (SGOT) 28 U/L (5-34); Alkaline Phosphatase 137 U/L (40-110); Anion Gap 12 mmol/L (10-20); BUN (Urea Nitrogen) 9 mg/dL (8.4-25.7); Bilirubin, Total 0.5 mg/dL (0.2-1.2); Calc. Creatinine Clearance 52 mL/min (70-130); Calcium 8.5 mg/dL (7.8-10.44); Carbon Dioxide 23 mmol/L (23-31); Chloride 105 mmol/L (98-107); Estimated GFR 64; Globulin 2.7 g/dL (2.4-3.5); Glucose 112 mg/dL (80-115); Potassium 4.8 mmol/L (3.5-5.1); Protein, Total 5.7 g/dL (5.8-8.1); Sodium 135 mmol/L (136-145)
[2021-12-25] MEDS ORDERED: FLU VACC QS2022-23(65YR UP)/PF 240 MCG/0.7 ML SYRINGE IM ONE (09:00)
[2021-12-25] MEDS: Multivitamin W/ Minerals 1 TAB PO SCH (09:14)
[2021-12-25] MEDS: Cyanocobalamin (Vitamin B-12) 1,000 MCG TAB PO SCH (09:14)
[2021-12-25] MEDS: Thiamine 100 MG TAB PO SCH (09:14)
[2021-12-25] MEDS ORDERED: Acetaminophen 325 MG TAB PO PRN (11:40)
[2021-12-25] MEDS ORDERED: Ibuprofen 600 MG TAB PO PRN (11:40)
[2021-12-25] MEDS ORDERED: Midazolam HCl 2 mg/2 ml Vial ONE (12:40)
[2021-12-25] MEDS ORDERED: Iopamidol 15 ML ONE (13:53)
[2021-12-25] MEDS ORDERED: fentaNYL Citrate/PF 100 MCG/2 ML SYRINGE ONE (14:03)
[2021-12-25] MEDS ORDERED: Levofloxacin 500 mg/D5W 100 ml Premix Bag ONE (14:06)
[2021-12-25] MEDS ORDERED: PHENYLEPHRINE-NS 100 MCG/ML 10 ML SYRINGE ONE (14:18)
[2021-12-25] MEDS ORDERED: PROPOFOL 200 MG/20 ML VIAL ONE (14:18)
[2021-12-25] MEDS ORDERED: Ondansetron PF 4 MG/2 ML Vial ONE (14:18)
[2021-12-25] MEDS ORDERED: Dexamethasone 20 MG/5 ML VIAL ONE (14:18)
[2021-12-25] MEDS ORDERED: Esmolol 100 MG/10 ML VIAL ONE (14:18)
[2021-12-25] MEDS: Aspirin 81 mg Enteric Coated Tablet PO SCH (14:39)
[2021-12-25] MEDS ORDERED: Oxybutynin 5 MG TAB PO PRN (15:00)
[2021-12-25] MEDS ORDERED: Mag-Al 1200 mg/1200 mg/30 ML UDCUP PO PRN (15:00)
[2021-12-25] MEDS ORDERED: Phenazopyridine HCl 95 MG TAB PO PRN (15:00)
[2021-12-25] MEDS: Ondansetron PF 4 MG/2 ML Vial IVP PRN (21:20)
[2021-12-25] MEDS: cefTRIAXone\\ROCEPHIN 1 GM in Sodium Chloride 0.9% 100 ML IVPB SCH (21:21)
[2021-12-25] MEDS: Docusate 100 MG CAP PO SCH (21:22)
[2021-12-26] MEDS: Morphine 4 MG/ML VIAL SLOW IVP PRN ×2 (02:05→06:29)
[2021-12-26 04:11] LABS: #Lymphocytes 0.2 thou/uL (1.20-3.40); #Monocytes 0.1 thou/uL (0.11-0.59); #Neutrophils 3.7 thou/uL (1.40-6.50); %Eosinophils 0.1 % (0.0-10.0); %Lymphocytes 5.6 % (21.0-51.0); %Monocytes 3.4 % (0.0-10.0); %Neutrophils 90.9 % (42.0-75.0); Hemoglobin 11.5 g/dL (14.0-18.0); Mean Corpuscular HGB CONC 33.5 g/dL (32.0-36.0); Mean Corpuscular Hemoglobin 35.4 pg (27.0-31.0); Mean Platelet Volume 6.3 fL (7.4-10.4); Platelet Count 187 thou/uL (130-400); RBC Distribution Width 11.5 % (11.5-14.5); Red Blood Cell (RBC) Count 3.24 mill/uL (4.70-6.10); White Blood Cell (WBC) Count 4.1 thou/uL (4.8-10.8)
[2021-12-26 04:21] LABS: ALT (SGPT) 16 U/L (8-55); AST (SGOT) 32 U/L (5-34); Albumin 3.1 g/dL (3.4-4.8); Alkaline Phosphatase 156 U/L (40-110); Anion Gap 13 mmol/L (10-20); BUN (Urea Nitrogen) 10 mg/dL (8.4-25.7); Bilirubin, Total 0.5 mg/dL (0.2-1.2); Calc. Creatinine Clearance 55 mL/min (70-130); Calcium 8.6 mg/dL (7.8-10.44); Carbon Dioxide 24 mmol/L (23-31); Chloride 102 mmol/L (98-107); Estimated GFR 68; Globulin 2.9 g/dL (2.4-3.5); Glucose 138 mg/dL (80-115); Potassium 4.1 mmol/L (3.5-5.1); Sodium 135 mmol/L (136-145)
[2021-12-26] MEDS: chlordiazePOXIDE HCl 25 MG CAP PO SCH ×2 (05:47→11:26)
[2021-12-26] MEDS ORDERED: Tamsulosin HCl 0.4 MG CAP PO SCH (09:00)
[2021-12-26] MEDS: Cyanocobalamin (Vitamin B-12) 1,000 MCG TAB PO SCH (09:21)
[2021-12-26] MEDS: Aspirin 81 mg Enteric Coated Tablet PO SCH (09:22)
[2021-12-26] MEDS: Docusate 100 MG CAP PO SCH (09:22)
[2021-12-26] MEDS: Multivitamin W/ Minerals 1 TAB PO SCH (09:22)
[2021-12-26] MEDS: Thiamine 100 MG TAB PO SCH (09:22)
[2021-12-26] MEDS: HYDROcodone/Acetaminophen 5/325 mg Tablet PO PRN (09:24)
[2021-12-26 11:34] VITALS: BP 158/77; TEMP 98.7
== END 2021-12-26 14:09 | disposition home or self-care (01) | DRG 660 ==
LOC: ERS 13:22 → 2NO 20:29
PROVIDERS: ADMIT Student in an Organized Health Care Education/Training Program; ATTEND Student in an Organized Health Care Education/Training Program
PROC: 0T788DZ Dilation of Bilateral Ureters with Intraluminal Device, Via Natural or Artificial Opening Endoscopic (ICD-10-PCS; principal; 2021-12-25)
PROC: BT14ZZZ Fluoroscopy of Kidneys, Ureters and Bladder (ICD-10-PCS; 2021-12-25)
DX: N13.2 Hydronephrosis with renal and ureteral calculous obstruction (principal); E87.1 Hypo-osmolality and hyponatremia; F10.239 Alcohol dependence with withdrawal, unspecified; K86.1 Other chronic pancreatitis; I25.2 Old myocardial infarction; N13.0 Hydronephrosis with ureteropelvic junction obstruction; Z20.822 Contact with and (suspected) exposure to COVID-19; D64.9 Anemia, unspecified; K27.9 Peptic ulcer, site unspecified, unspecified as acute or chronic, without hemorrhage or perforation; I25.10 Atherosclerotic heart disease of native coronary artery without angina pectoris; K80.20 Calculus of gallbladder without cholecystitis without obstruction; K76.0 Fatty (change of) liver, not elsewhere classified; G62.9 Polyneuropathy, unspecified; E78.5 Hyperlipidemia, unspecified; Z95.1 Presence of aortocoronary bypass graft; Z95.5 Presence of coronary angioplasty implant and graft; Z87.891 Personal history of nicotine dependence
CPT/HCPCS: 36415; 71045; 71275; 74177; 74420; 80053; 80061; 81003; 82607; 83605; 83690; 83880; 84484; 85025; 85610; 85730; 87086; 93005; 96374; 96375; C2617; J0696; J1100; J1885; J1956; J2250; J2270; J2405; J2704; J3490; J7120; Q9967; U0002; U0003; U0005

== ENCOUNTER 2022-01-06 06:28 | Day surgery (SDC) | payer MEDICARE ==
[2022-01-03 10:13] VITALS: BMI 21.8
[2022-01-06] MEDS ORDERED: Sodium Chloride 0.9% 100 ML ONE (08:14)
[2022-01-06] MEDS ORDERED: cefTRIAXone\\ROCEPHIN 2 GM VIAL ONE (08:14)
[2022-01-06] MEDS ORDERED: FENTANYL 50 MCG/ML 1 ML VIAL ONE ×3 (08:16→12:17)
[2022-01-06] MEDS ORDERED: Phenylephrine 10 MG/ML VIAL ONE (08:16)
[2022-01-06] MEDS ORDERED: Iopamidol 15 ML ONE (08:17)
[2022-01-06 08:20] LABS: Potassium 4.8 mmol/L (3.5-5.1)
[2022-01-06] MEDS ORDERED: Dexamethasone 20 MG/5 ML VIAL ONE (08:37)
[2022-01-06] MEDS ORDERED: Rocuronium Bromide 10 MG/ML (10ML VIAL) ONE (08:37)
[2022-01-06] MEDS ORDERED: NEOSTIGMINE 3 MG/3 ML SYR 3 MG/3 ML SYRINGE ONE (08:37)
[2022-01-06] MEDS ORDERED: Ondansetron PF 4 MG/2 ML Vial ONE (08:37)
[2022-01-06] MEDS ORDERED: PHENYLEPHRINE-NS 100 MCG/ML 10 ML SYRINGE ONE (08:37)
[2022-01-06] MEDS ORDERED: Glycopyrrolate 0.2 MG/ML 5 ML SYRINGE ONE (08:37)
[2022-01-06] MEDS ORDERED: PROPOFOL 200 MG/20 ML VIAL ONE (08:37)
[2022-01-06] MEDS ORDERED: Phenazopyridine HCl 100 MG TAB ONE (12:07)
[2022-01-06] MEDS ORDERED: Tamsulosin HCl 0.4 MG CAP ONE (14:50)
== END 2022-01-06 17:08 | disposition home or self-care (01) ==
LOC: SDC 06:28
PROVIDERS: ATTEND Urology
PROC: 0TC78ZZ Extirpation of Matter from Left Ureter, Via Natural or Artificial Opening Endoscopic (ICD-10-PCS; principal; 2022-01-06)
PROC: 0TC68ZZ Extirpation of Matter from Right Ureter, Via Natural or Artificial Opening Endoscopic (ICD-10-PCS; 2022-01-06)
PROC: 0TP98DZ Removal of Intraluminal Device from Ureter, Via Natural or Artificial Opening Endoscopic (ICD-10-PCS; 2022-01-06)
PROC: 0T788DZ Dilation of Bilateral Ureters with Intraluminal Device, Via Natural or Artificial Opening Endoscopic (ICD-10-PCS; 2022-01-06)
DX: N13.2 Hydronephrosis with renal and ureteral calculous obstruction (principal); N40.1 Benign prostatic hyperplasia with lower urinary tract symptoms; R35.0 Frequency of micturition; F10.10 Alcohol abuse, uncomplicated; I10 Essential (primary) hypertension; I25.10 Atherosclerotic heart disease of native coronary artery without angina pectoris; Z87.891 Personal history of nicotine dependence; Z95.1 Presence of aortocoronary bypass graft; Z88.5 Allergy status to narcotic agent
CPT/HCPCS: 52356; 74018; 74420; 82365; 84132; J3010; 88300; C1769; C2617; J0696; J1100; J2370; J2405; J2704; J3490; Q9967

== ENCOUNTER 2022-01-15 09:56 | Outpatient (CLI) | payer MEDICARE | END 2022-01-15 09:57 | disposition home or self-care (01) | LOC: BICCT 09:56 | PROVIDERS: ATTEND Urology | DX: N20.1 Calculus of ureter (principal); Z96.0 Presence of urogenital implants | CPT/HCPCS: 74176 ==

== ENCOUNTER 2022-02-03 21:43 | Emergency (ER) | payer MEDICARE ==
[2022-02-03 22:38] LABS: #Eosinphils 0.1 thou/uL (0.0-0.7); #Lymphocytes 0.8 thou/uL (1.20-3.40); #Monocytes 1.1 thou/uL (0.11-0.59); #Neutrophils 8.6 thou/uL (1.40-6.50); %Basophils 0.1 % (0.0-1.0); %Eosinophils 0.5 % (0.0-10.0); %Lymphocytes 7.8 % (21.0-51.0); %Neutrophils 81.7 % (42.0-75.0); Hemoglobin 11.8 g/dL (14.0-18.0); Mean Corpuscular HGB CONC 34.3 g/dL (32.0-36.0); Mean Platelet Volume 6.2 fL (7.4-10.4); Platelet Count 185 10x3/uL (130-400); RBC Distribution Width 11.7 % (11.5-14.5); Red Blood Cell (RBC) Count 3.37 mill/uL (4.70-6.10); White Blood Cell (WBC) Count 10.5 10x3/uL (4.8-10.8)
[2022-02-03 22:52] LABS: SARS-CoV-2 NAA Rapid Test Not Detected (NotDetected)
[2022-02-03 23:00] LABS: ALT (SGPT) 9 U/L (8-55); AST (SGOT) 18 U/L (5-34); Albumin 3.6 g/dL (3.4-4.8); Alkaline Phosphatase 137 U/L (40-110); Anion Gap 13 mmol/L (10-20); BUN (Urea Nitrogen) 14 mg/dL (8.4-25.7); Bilirubin, Total 0.5 mg/dL (0.2-1.2); CK (CPK) 55 U/L (30-200); CRP (Inflammatory) 2.01 mg/dL (= or < 0.5); Calc. Creatinine Clearance 0 mL/min (70-130); Calcium 8.6 mg/dL (7.8-10.44); Carbon Dioxide 18 mmol/L (23-31); Chloride 102 mmol/L (98-107); Estimated GFR 60; Globulin 2.9 g/dL (2.4-3.5); Glucose 106 mg/dL (80-115); Potassium 4.5 mmol/L (3.5-5.1); Protein, Total 6.5 g/dL (5.8-8.1); Sodium 128 mmol/L (136-145)
[2022-02-03] MEDS ORDERED: Piperacillin/Tazobactam 4.5 GM VIAL ONE (23:42)
[2022-02-04] MEDS ORDERED: Vancomycin 1 GM/200 ML (FROZEN) BAG ONE (01:22)
[2022-02-04 01:54] LABS: Bacteria/HPF None Seen HPF (None Seen); Bilirubin Negative (Negative); Blood, Urine Negative (Negative); Clarity Clear (Clear); Glucose, Urine (Dipstick) Normal (Negative); Ketone, Urine Negative (Negative); Leukocyte Negative Leu/uL (Negative); Nitrite Negative (Negative); Protein, Urine (Dipstick) Negative (Neg-Trace); RBC/HPF 0-3 HPF (0-3); Specific Gravity, Urine 1.009 (1.002-1.036); Squamous Epithelial 0-3 HPF (0-3); Urobilinogen Normal mg/dL (Less than 2); WBC/HPF 0-3 HPF (0-3)
[2022-02-04] MEDS ORDERED: Ketorolac Tromethamine 30 MG/ML VIAL ONE (02:11)
== END 2022-02-04 05:29 | disposition home or self-care (01) ==
LOC: ERS 21:43
DX: B34.9 Viral infection, unspecified (principal); Z20.822 Contact with and (suspected) exposure to COVID-19
CPT/HCPCS: 0240U; 71045; 74177; 80053; 81001; 82550; 83690; 84484; 85025; 86140; 87040; 87086; 93005; J3370; 36415; 96374; 96375; J1885; J2543; Q9967

== ENCOUNTER 2022-08-20 08:31 | Outpatient (CLI) | payer MEDICARE | END 2022-08-20 08:32 | disposition home or self-care (01) | LOC: RAD 08:31 | PROVIDERS: ATTEND Internal Medicine Critical Care Medicine | DX: R06.00 Dyspnea, unspecified (principal); I70.0 Atherosclerosis of aorta; I77.819 Aortic ectasia, unspecified site | CPT/HCPCS: 71046 ==

== ENCOUNTER 2022-11-09 15:12 | Inpatient (IN) | payer MEDICARE ==
[~2022-11-09 15:12] MED LIST changes: -Iopamidol-370 76% 500 ML 1 ML ONE; +Iopamidol-370 76% 500 ML MDV (1 ML CHARGE) ONE
[2022-11-09 15:38] LABS: #Monocytes 1.4 thou/uL (0.11-0.59); #Neutrophils 13.6 thou/uL (1.40-6.50); %Basophils 0.2 % (0.0-1.0); %Eosinophils 0.2 % (0.0-10.0); %Lymphocytes 5.7 % (21.0-51.0); %Monocytes 8.7 % (0.0-10.0); %Neutrophils 84.9 % (42.0-75.0); Hematocrit 39.9 % (42.0-52.0); Hemoglobin 14.7 g/dL (14.0-18.0); Mean Corpuscular HGB CONC 36.8 g/dL (32.0-36.0); Mean Corpuscular Hemoglobin 35.9 pg (27.0-31.0); Mean Corpuscular Volume 97.3 fl (78.0-98.0); Mean Platelet Volume 8.7 fL (7.4-10.4); Platelet Count 240 10x3/uL (130-400); RBC Distribution Width 12.1 % (11.5-14.5)
[2022-11-09] MEDS ORDERED: Cefepime 2 GM VIAL ONE (16:05)
[2022-11-09] MEDS ORDERED: Vancomycin 1 GM/200 ML (FROZEN) BAG ONE (16:05)
[2022-11-09 16:08] LABS: ALT (SGPT) 22 U/L (8-55); AST (SGOT) 37 U/L (5-34); Albumin 3.5 g/dL (3.4-4.8); Alkaline Phosphatase 138 U/L (40-110); Anion Gap 17 mmol/L (10-20); BUN (Urea Nitrogen) 8 mg/dL (8.4-25.7); Calc. Creatinine Clearance 0 mL/min (70-130); Calcium 8.5 mg/dL (7.8-10.44); Carbon Dioxide 23 mmol/L (23-31); Chloride 93 mmol/L (98-107); Estimated GFR 50; Globulin 2.8 g/dL (2.4-3.5); Glucose 108 mg/dL (80-115); Potassium 2.8 mmol/L (3.5-5.1); Protein, Total 6.3 g/dL (5.8-8.1); Sodium 130 mmol/L (136-145)
[2022-11-09 16:10] LABS: Troponin I 0.011 ng/mL (< 0.028)
[2022-11-09] MEDS ORDERED: HYDROcodone/Acetaminophen 5/325 mg Tablet ONE (16:20)
[2022-11-09] MEDS ORDERED: Multivitamins, Adult 10 ML, Thiamine HCl 100 MG, Folic Acid 1 MG in Dextrose 5 %-0.45 %... IV SCH (16:30)
[2022-11-09 16:41] LABS: Prothrombin Time 13.7 sec (12.0-14.7)
[2022-11-09 16:42] LABS: PTT 33.7 sec (22.9-36.1)
[2022-11-09] MEDS ORDERED: Potassium Chloride 20 MEQ/100 ML PREMIX BAG ONE (17:07)
[2022-11-09] MEDS ORDERED: Potassium Chloride 20 MEQ TAB ONE (17:07)
[2022-11-09 17:36] LABS: Bacteria/HPF None Seen HPF (None Seen); Bilirubin Negative (Negative); Blood, Urine Negative (Negative); CAUTI Indications for Culture Fever or rigors; Clarity Clear (Clear); Glucose, Urine (Dipstick) Normal (Negative); Ketone, Urine Negative (Negative); Leukocyte Negative Leu/uL (Negative); Nitrite Negative (Negative); Protein, Urine (Dipstick) Negative (Neg-Trace); RBC/HPF 0-3 HPF (0-3); Specific Gravity, Urine 1.018 (1.002-1.036); Squamous Epithelial 0-3 HPF (0-3); WBC/HPF 0-3 HPF (0-3)
[2022-11-09 17:38] LABS: Urine Culture Reflex No No
[2022-11-09 18:14] LABS: SARS-CoV-2 NAA Rapid Test Not Detected (NotDetected)
[2022-11-09 19:37] LABS: Lactic Acid 2.2 mmol/L (0.5-2.2)
[2022-11-09 20:12] VITALS: BMI 27.1
[2022-11-09] MEDS ORDERED: Sodium Chloride 0.9% 1,000 ML IV SCH (20:15)
[2022-11-09] MEDS ORDERED: Ondansetron PF 4 MG/2 ML Vial IVP PRN (20:15)
[2022-11-09] MEDS ORDERED: Acetaminophen 325 MG TAB PO PRN (20:15)
[2022-11-09] MEDS ORDERED: Ondansetron ODT 4 MG TAB SL PRN (20:15)
[2022-11-09] MEDS ORDERED: Ipratropium/Albuterol 3 ML NEB NEB PRN (21:08)
[2022-11-09] MEDS: Acetaminophen/Codeine 30-300mg Tablet PO PRN (22:58)
[2022-11-10] MEDS: Acetaminophen/Codeine 30-300mg Tablet PO PRN (05:10)
[2022-11-10 06:01] LABS: #Eosinphils 0.2 thou/uL (0.0-0.7); #Monocytes 1.2 thou/uL (0.11-0.59); #Neutrophils 8.8 thou/uL (1.40-6.50); %Basophils 0.4 % (0.0-1.0); %Eosinophils 1.9 % (0.0-10.0); %Lymphocytes 6.6 % (21.0-51.0); %Monocytes 11.2 % (0.0-10.0); %Neutrophils 79.4 % (42.0-75.0); Hematocrit 38.9 % (42.0-52.0); Hemoglobin 13.4 g/dL (14.0-18.0); Mean Corpuscular HGB CONC 34.4 g/dL (32.0-36.0); Mean Corpuscular Hemoglobin 35.5 pg (27.0-31.0); Mean Platelet Volume 8.7 fL (7.4-10.4); Platelet Count 246 10x3/uL (130-400); RBC Distribution Width 12.4 % (11.5-14.5); Red Blood Cell (RBC) Count 3.77 mill/uL (4.70-6.10); White Blood Cell (WBC) Count 11.1 10x3/uL (4.8-10.8)
[2022-11-10 06:26] LABS: Anion Gap 13 mmol/L (10-20); BUN (Urea Nitrogen) 10 mg/dL (8.4-25.7); Calc. Creatinine Clearance 52 mL/min (70-130); Calcium 8.4 mg/dL (7.8-10.44); Carbon Dioxide 24 mmol/L (23-31); Chloride 100 mmol/L (98-107); Estimated GFR 61; Glucose 95 mg/dL (80-115); Potassium 3.4 mmol/L (3.5-5.1); Sodium 134 mmol/L (136-145)
[2022-11-10 07:17] LABS: Mean Corpuscular Volume 103.2 fl (78.0-98.0)
[2022-11-10] MEDS ORDERED: Potassium Chloride 20 MEQ TAB PO SCH (07:30)
[2022-11-10] MEDS: Famotidine/PF 20 mg/2ml Vial SLOW IVP SCH (08:07)
[2022-11-10] MEDS ORDERED: HYDROcodone/Acetaminophen 5/325 mg Tablet PO PRN (08:26)
[2022-11-10] MEDS ORDERED: Benzonatate 100 MG CAP PO PRN (08:27)
[2022-11-10] MEDS ORDERED: HYDROcodone/Acetaminophen 5/325 mg Tablet PO SCH (08:30)
[2022-11-10] MEDS ORDERED: Ipratropium/Albuterol 3 ML NEB NEB SCH (08:30)
[2022-11-10 08:47] LABS: CRP (Inflammatory) 8.29 mg/dL (= or < 0.5); Uric Acid 8.8 mg/dL (3.5-7.2)
[2022-11-10] MEDS: guaiFENesin ER 600 MG TAB PO SCH ×2 (09:29→20:42)
[2022-11-10] MEDS: methylPREDNISolone Sod Succ 40 MG VIAL IVP SCH ×2 (09:30→20:42)
[2022-11-10] MEDS ORDERED: Colchicine 0.3 MG TAB PO SCH (09:45)
[2022-11-10] MEDS ORDERED: Cefepime 1 GM in Sodium Chloride 0.9% 100 ML IVPB SCH (13:00)
[2022-11-10] MEDS ORDERED: Vancomycin 1 GM in Premix Bag 1 BAG IVPB SCH (14:00)
[2022-11-10] MEDS: Colchicine 0.3 MG TAB PO SCH (20:42)
[2022-11-11] MEDS ORDERED: Cefepime 1 GM in Sodium Chloride 0.9% 100 ML IVPB SCH (01:00)
[2022-11-11 06:32] LABS: Anion Gap 11 mmol/L (10-20); BUN (Urea Nitrogen) 13 mg/dL (8.4-25.7); Calc. Creatinine Clearance 53 mL/min (70-130); Calcium 8.8 mg/dL (7.8-10.44); Carbon Dioxide 23 mmol/L (23-31); Chloride 104 mmol/L (98-107); Estimated GFR 62; Glucose 165 mg/dL (80-115); Magnesium 1.3 mg/dL (1.6-2.6); Potassium 3.8 mmol/L (3.5-5.1); Sodium 134 mmol/L (136-145)
[2022-11-11] MEDS ORDERED: Magnesium Sulfate 4 GM in Sodium Chloride 0.9% 250 ML 250 ML IVPB SCH (07:30)
[2022-11-11] MEDS ORDERED: Magnesium Sulfate In Water 4 GM in Premix Bag 1 BAG IVPB SCH (08:00)
[2022-11-11] MEDS: Colchicine 0.3 MG TAB PO SCH ×2 (08:02→20:49)
[2022-11-11] MEDS: Famotidine/PF 20 mg/2ml Vial SLOW IVP SCH (08:02)
[2022-11-11] MEDS: guaiFENesin ER 600 MG TAB PO SCH ×2 (08:02→20:49)
[2022-11-11] MEDS: methylPREDNISolone Sod Succ 40 MG VIAL IVP SCH ×2 (08:03→20:48)
[2022-11-11] MEDS ORDERED: Lidocaine 4% Patch TD SCH (09:00)
[2022-11-11] MEDS: Doxycycline 100 MG CAP PO SCH ×2 (09:42→20:49)
[2022-11-11] MEDS: tiZANidine HCl 4 MG TAB PO SCH ×2 (09:42→20:49)
[2022-11-11] MEDS: Gabapentin 300 MG CAP PO SCH ×2 (09:42→20:49)
[2022-11-11] MEDS: Lidocaine 4% Patch TD SCH (09:43)
[2022-11-11] MEDS ORDERED: Transdermal Patch Removal TOP SCH (21:00)
[2022-11-12 07:16] LABS: Magnesium 1.7 mg/dL (1.6-2.6)
[2022-11-12] MEDS: tiZANidine HCl 4 MG TAB PO SCH (07:48)
[2022-11-12] MEDS: guaiFENesin ER 600 MG TAB PO SCH (07:48)
[2022-11-12] MEDS: Gabapentin 300 MG CAP PO SCH (07:48)
[2022-11-12] MEDS: Colchicine 0.3 MG TAB PO SCH (07:48)
[2022-11-12] MEDS: methylPREDNISolone Sod Succ 40 MG VIAL IVP SCH (07:49)
[2022-11-12] MEDS: Lidocaine 4% Patch TD SCH (07:55)
[2022-11-12] MEDS: Doxycycline 100 MG CAP PO SCH (07:55)
[2022-11-12 08:25] VITALS: BP 163/81; TEMP 97.9
== END 2022-11-12 11:30 | disposition home or self-care (01) | DRG 191 ==
LOC: ERS 15:12 → T4-A 18:42 → OBSVTOIN 11-10 14:29
PROVIDERS: ADMIT Hospitalist; ATTEND Family Medicine
DX: J44.1 Chronic obstructive pulmonary disease with (acute) exacerbation (principal); I50.30 Unspecified diastolic (congestive) heart failure; N17.9 Acute kidney failure, unspecified; Z79.899 Other long term (current) drug therapy; Z20.822 Contact with and (suspected) exposure to COVID-19; E87.6 Hypokalemia; M10.9 Gout, unspecified; I71.40 Abdominal aortic aneurysm, without rupture, unspecified; I25.10 Atherosclerotic heart disease of native coronary artery without angina pectoris; Z95.1 Presence of aortocoronary bypass graft
CPT/HCPCS: 36415; 71045; 71275; 80048; 80053; 81001; 83605; 83735; 83880; 84484; 84550; 85025; 85379; 85610; 85730; 86140; 87040; 87086; 93005; 93306; 94640; 96361; 96365; 96367; 96368; 96375; 96376; G0378; J0692; J2920; J3370-JW; J3411; J3475; J3480; J3490; J7042; J7620; Q9967; S0028

== ENCOUNTER 2023-08-24 09:42 | Inpatient (IN) | payer MEDICARE ==
[2023-08-24] MEDS ORDERED: Ondansetron PF 4 MG/2 ML Vial ONE (10:17)
[2023-08-24 11:07] LABS: Bacteria/HPF 1+ HPF (None Seen); Bilirubin Negative (Negative); Blood, Urine 2+ (Negative); CAUTI Indications for Culture Alt mental st,lethar; Clarity Clear (Clear); Glucose, Urine (Dipstick) Normal (Negative); Ketone, Urine 10 mg/dL (Negative); Leukocyte Negative Leu/uL (Negative); Nitrite Negative (Negative); Protein, Urine (Dipstick) 100 mg/dL (Neg-Trace); RBC/HPF 0-3 HPF (0-3); Specific Gravity, Urine 1.018 (1.002-1.036); Squamous Epithelial None Seen HPF (0-3); Urobilinogen Normal mg/dL (Less than 2); WBC/HPF 0-3 HPF (0-3)
[2023-08-24 11:09] LABS: Urine Culture Reflex No No
[2023-08-24 11:13] LABS: Amphetamine Not Detected (NotDetected); Barbiturates Screen Not Detected (NotDetected); Benzodiazepine Screen Not Detected (NotDetected); Cocaine Metabolite Screen Not Detected (NotDetected); Methadone Not Detected (NotDetected); Methamphetamine Not Detected (NotDetected); Opiate Screen Detected (NotDetected); Oxycodone Screen Not Detected (NotDetected); Phencyclidine (PCP) Not Detected (NotDetected); THC/Cannabinoid Screen Not Detected (NotDetected); Tricyclic Screen Not Detected (NotDetected)
[2023-08-24 11:32] LABS: #Basophils Less than 0.03 10x3/uL (0.0-0.2); #Eosinphils Less than 0.03 10x3/uL (0.0-0.7); %Basophils 0.1 % (0.0-1.0); %Lymphocytes 4.6 % (21.0-51.0); %Monocytes 9.1 % (0.0-10.0); %Neutrophils 85.3 % (42.0-75.0); Hematocrit 30.9 % (42.0-52.0); Hemoglobin 9.8 g/dL (14.0-18.0); Mean Corpuscular HGB CONC 31.7 g/dL (32.0-36.0); Mean Corpuscular Hemoglobin 33.6 pg (27.0-31.0); Mean Corpuscular Volume 105.8 fL (78.0-98.0); Mean Platelet Volume 10.2 fL (7.4-10.4); Platelet Count 179 10x3/uL (130-400); RBC Distribution Width 14.6 % (11.5-14.5); Red Blood Cell (RBC) Count 2.92 mill/uL (4.70-6.10)
[2023-08-24 11:54] LABS: INR-International Normal Ratio 1.9; PTT 41.9 sec (22.9-36.1); Prothrombin Time 21.4 sec (12.0-14.7)
[2023-08-24 11:55] LABS: Lipase 5 U/L (8-78); Magnesium 1.3 mg/dL (1.6-2.6)
[2023-08-24 11:56] LABS: Acetaminophen Less than 10 mcg/mL (10.0-30.0); Alcohol Less than 10.0 mg/dL (Less than 10); Salicylate Less than 8.0 mg/dL (15.0-30.0)
[2023-08-24 12:00] LABS: Troponin I 0.016 ng/mL (< 0.028)
[2023-08-24] MEDS ORDERED: Dexamethasone 10 MG/ML VIAL ONE (12:03)
[2023-08-24 12:15] LABS: ALT (SGPT) 34 U/L (8-55); AST (SGOT) 60 U/L (5-34); Albumin 2.4 g/dL (3.4-4.8); Alkaline Phosphatase 110 U/L (40-110); Anion Gap 20 mmol/L (10-20); BUN (Urea Nitrogen) 85 mg/dL (8.4-25.7); Bilirubin, Total 0.4 mg/dL (0.2-1.2); Calc. Creatinine Clearance 0 mL/min (70-130); Calcium 8.9 mg/dL (7.8-10.44); Carbon Dioxide Less than 8 mmol/L (23-31); Chloride 122 mmol/L (98-107); Estimated GFR 11; Globulin 2.8 g/dL (2.4-3.5); Glucose 114 mg/dL (80-115); Potassium 5.3 mmol/L (3.5-5.1); Protein, Total 5.2 g/dL (5.8-8.1); Sodium 142 mmol/L (136-145)
[2023-08-24] MEDS ORDERED: Sodium Bicarb 50 MEQ/50 ML Abboject 8.4% SYRINGE ONE (12:59)
[2023-08-24] MEDS ORDERED: NOREPINEPHRINE 8 MG/250 ML-D5W 250 ML ONE (12:59)
[2023-08-24] MEDS ORDERED: Magnesium 2 GM/50 ML BAG (IN WATER) ONE (13:00)
[2023-08-24] MEDS ORDERED: NOREPINEPHRINE 8 MG/250 ML-D5W 250 ML IVPB SCH (14:15)
[2023-08-24 14:19] LABS: Analyzer IN Cardio ER; Base Excess (BEa) -19.7 mEq/L (-2.0 to +3.0); Calcium, Ionized (arterial) 1.27 mmol/L (1.12-1.30); Carboxyhemoglobin (COHb) 0.3 gm% (0.0-3.0); Hematocrit-ABG 28 % (42.0-52.0); Hemoglobin (Hb) 9.5 g/dL (14.0-18.0); O2 Tension (PaO2), arterial 94.2 mmHg (> 70.0); Potassium - ABG Lab 4.41 mmol/L (3.70-5.30); pH, Arterial 7.222 (7.35-7.45)
[2023-08-24 14:21] LABS: Actual Bicarbonate (HCO3a) 5.9 mEq/L (22-28); CO2 Tension 14.6 mmHg (35.0-45.0)
[2023-08-24 14:49] LABS: Troponin I 0.018 ng/mL (< 0.028)
[2023-08-24 14:53] LABS: Vancomycin, Random 140.2 ug/mL (See Comment)
[2023-08-24] MEDS: Multivitamins, Adult 10 ML, Thiamine HCl 100 MG, Folic Acid 1 MG in Dextrose 5 %-0.45 %... IV SCH (15:42)
[2023-08-24] MEDS: Naloxone HCl 0.4 mg/ml Vial IV SCH ×2 (15:42→16:09)
[2023-08-24] MEDS: Heparin 5,000 UNITS/ML VIAL SC SCH (15:47)
[2023-08-24] MEDS ORDERED: Dextrose 5% in Water 1,000 ML IV PRN (15:50)
[2023-08-24] MEDS ORDERED: Dextrose 50% Abboject 50 ML SYRINGE SLOW IVP PRN (15:50)
[2023-08-24] MEDS ORDERED: Glucagon 1 MG/ML KIT IM PRN (15:50)
[2023-08-24] MEDS: Sodium Bicarb 50 mEq/50 ML VIAL IVP SCH (16:09)
[2023-08-24] MEDS: Hydrocortisone Sod Succ/PF 100 mg/2 ml Vial IVP SCH ×2 (16:09→23:12)
[2023-08-24] MEDS: Sodium Bicarbonate 150 MEQ in Dextrose 5% in Water 1,000 ML FS SCH (16:09)
[2023-08-24] MEDS: Ondansetron PF 4 MG/2 ML Vial IVP PRN (16:28)
[2023-08-24] MEDS ORDERED: Naloxone HCl 0.4 mg/ml Vial IV SCH (16:30)
[2023-08-24 16:41] LABS: Troponin I 0.016 ng/mL (< 0.028)
[2023-08-24] MEDS: Sodium Bicarbonate 150 MEQ in Dextrose 5% in Water 1,000 ML IV SCH (17:20)
[2023-08-24] MEDS: Albumin 25% 25 GM (100 mL) BOT IVPB SCH (17:57)
[2023-08-24] MEDS ORDERED: Albumin 25% 25 GM (100 mL) BOT IVPB SCH (18:00)
[2023-08-24] MEDS: Magnesium 2 GM/50 ML(in water) 2 GM in Premix 1 BAG IVPB SCH (18:44)
[2023-08-24] MEDS: Insulin Regular, Human 100 UNIT/ML 10 ML VIAL SC PRN (18:45)
[2023-08-24 19:16] LABS: BUN (Urea Nitrogen) 80 mg/dL (8.4-25.7); Calc. Creatinine Clearance 11 mL/min (70-130); Estimated GFR 11
[2023-08-24 19:49] LABS: Chloride 122 mmol/L (98-107); Potassium 4.5 mmol/L (3.5-5.1); Sodium 140 mmol/L (136-145)
[2023-08-24 19:50] LABS: Calcium 8.4 mg/dL (7.6-10.4); Carbon Dioxide Less than 8 mmol/L (23-31); Glucose 181 mg/dL (80-115); Magnesium 1.3 mg/dL (1.6-2.6)
[2023-08-24] MEDS: Sodium Bicarb 50 MEQ/50 ML Abboject 8.4% SYRINGE IVP SCH (20:08)
[2023-08-25 05:04] LABS: #Basophils Less than 0.03 10x3/uL (0.0-0.2); #Eosinphils Less than 0.03 10x3/uL (0.0-0.7); %Basophils 0.1 % (0.0-1.0); %Lymphocytes 3.1 % (21.0-51.0); %Neutrophils 85.4 % (42.0-75.0); Hematocrit 22.3 % (42.0-52.0); Hemoglobin 8.1 g/dL (14.0-18.0); Mean Corpuscular HGB CONC 36.3 g/dL (32.0-36.0); Mean Corpuscular Hemoglobin 33.2 pg (27.0-31.0); Mean Corpuscular Volume 91.4 fL (78.0-98.0); Mean Platelet Volume 10.7 fL (7.4-10.4); Platelet Count 152 10x3/uL (130-400); RBC Distribution Width 14.1 % (11.5-14.5); Red Blood Cell (RBC) Count 2.44 mill/uL (4.70-6.10)
[2023-08-25 05:24] LABS: ALT (SGPT) 45 U/L (8-55); AST (SGOT) 85 U/L (5-34); Albumin 2.7 g/dL (3.4-4.8); Alkaline Phosphatase 88 U/L (40-110); Anion Gap 23 mmol/L (10-20); BUN (Urea Nitrogen) 82 mg/dL (8.4-25.7); Bilirubin, Total 0.6 mg/dL (0.2-1.2); Calc. Creatinine Clearance 11 mL/min (70-130); Calcium 8.6 mg/dL (7.8-10.44); Carbon Dioxide 15 mmol/L (23-31); Chloride 113 mmol/L (98-107); Estimated GFR 11; Globulin 2.4 g/dL (2.4-3.5); Glucose 189 mg/dL (80-115); Magnesium 2.2 mg/dL (1.6-2.6); Potassium 2.5 mmol/L (3.5-5.1); Protein, Total 5.1 g/dL (5.8-8.1); Sodium 148 mmol/L (136-145)
[2023-08-25] MEDS: Potassium Chloride 20 MEQ in Premix 1 BAG IVPB SCH ×3 (05:39→22:52)
[2023-08-25 07:35] LABS: Actual Bicarbonate (HCO3a) 15.9 mEq/L (22-28); Base Excess (BEa) -5.6 mEq/L (-2.0 to +3.0); Calcium, Ionized (arterial) 1.09 mmol/L (1.12-1.30); Carboxyhemoglobin (COHb) 0.9 gm% (0.0-3.0); Hematocrit-ABG 24 % (42.0-52.0); Hemoglobin (Hb) 8.1 g/dL (14.0-18.0); O2 Tension (PaO2), arterial 96.6 mmHg (> 70.0); Potassium - ABG Lab 2.95 mmol/L (3.70-5.30); pH, Arterial 7.537 (7.35-7.45)
[2023-08-25 07:36] LABS: CO2 Tension 19.1 mmHg (35.0-45.0); Puncture Site RBA
[2023-08-25] MEDS: Sodium Bicarbonate 150 MEQ in Dextrose 5% in Water 1,000 ML IV SCH (09:54)
[2023-08-25 12:21] LABS: Anion Gap 20 mmol/L (10-20); BUN (Urea Nitrogen) 82 mg/dL (8.4-25.7); Calc. Creatinine Clearance 12 mL/min (70-130); Calcium 8.9 mg/dL (7.8-10.44); Carbon Dioxide 17 mmol/L (23-31); Chloride 111 mmol/L (98-107); Estimated GFR 12; Glucose 136 mg/dL (80-115); Potassium 2.9 mmol/L (3.5-5.1); Sodium 145 mmol/L (136-145)
[2023-08-25] MEDS ORDERED: Potassium Chloride 40 MEQ in Premix 1 BAG IVPB SCH (13:45)
[2023-08-25] MEDS: Thiamine 100 MG TAB PO SCH (13:51)
[2023-08-25] MEDS: DAPTOMYCIN IVPB SCH (13:58)
[2023-08-25] MEDS: SODIUM CHLORIDE 0.9% IVPB SCH (13:58)
[2023-08-25 19:13] LABS: Anion Gap 24 mmol/L (10-20); BUN (Urea Nitrogen) 83 mg/dL (8.4-25.7); Calc. Creatinine Clearance 11 mL/min (70-130); Calcium 9.1 mg/dL (7.8-10.44); Carbon Dioxide 16 mmol/L (23-31); Chloride 110 mmol/L (98-107); Estimated GFR 12; Glucose 133 mg/dL (80-115); Potassium 3.4 mmol/L (3.5-5.1); Sodium 147 mmol/L (136-145)
[2023-08-26] MEDS: Sodium Bicarbonate 150 MEQ in Dextrose 5% in Water 1,000 ML IV SCH (00:36)
[2023-08-26 05:22] LABS: Mean Corpuscular HGB CONC 36.4 g/dL (32.0-36.0); Mean Corpuscular Volume 93.6 fL (78.0-98.0); Mean Platelet Volume 10.6 fL (7.4-10.4); Platelet Count 147 10x3/uL (130-400); RBC Distribution Width 15.1 % (11.5-14.5); Red Blood Cell (RBC) Count 2.35 mill/uL (4.70-6.10)
[2023-08-26 05:56] LABS: ALT (SGPT) 126 U/L (8-55); AST (SGOT) 230 U/L (5-34); Albumin 2.8 g/dL (3.4-4.8); Alkaline Phosphatase 100 U/L (40-110); Anion Gap 22 mmol/L (10-20); BUN (Urea Nitrogen) 88 mg/dL (8.4-25.7); Bilirubin, Total 0.8 mg/dL (0.2-1.2); Calc. Creatinine Clearance 11 mL/min (70-130); Calcium 8.8 mg/dL (7.8-10.44); Carbon Dioxide 19 mmol/L (23-31); Chloride 108 mmol/L (98-107); Estimated GFR 12; Globulin 2.5 g/dL (2.4-3.5); Glucose 138 mg/dL (80-115); Potassium 3.5 mmol/L (3.5-5.1); Protein, Total 5.3 g/dL (5.8-8.1); Sodium 145 mmol/L (136-145)
[2023-08-26 06:08] LABS: Band 11 % (5-11); Eosinophils 1 % (0-10); Hypochromia SLIGHT = 6-15 cells HPF (0-5); Lymphocytes 11 % (21-51); Metamyelocyte 1 % (0-0); Monocytes 4 % (0-10); Myelocyte 3 % (0-0); Neutrophil 69 % (42-75); Nucleated RBC (Manual Ct) 16 % (0); Platelet Adequacy Comment Platelets Normal; Polychromasia SLIGHT = 2-3 cells HPF (0-2); Promyelocytes 1 % (0-0)
[2023-08-26] MEDS: Fluconazole In NaCl,Iso-Osm 100 MG in Admixture Fee 1 EACH IVPB SCH (09:11)
[2023-08-26] MEDS: Aspirin Chewable 81 MG TAB PER TUBE SCH (09:42)
[2023-08-26] MEDS: Albumin 25% 25 GM (100 mL) BOT IVPB SCH (11:50)
[2023-08-26] MEDS: Polyvinyl Alcohol 1.4%/Povidone 0.6% Opth Drops EA EYE SCH ×2 (18:25→20:12)
[2023-08-26] MEDS: Atorvastatin Calcium 40 MG TAB PER TUBE SCH (20:11)
[2023-08-27 07:30] LABS: Hematocrit 22.4 % (42.0-52.0); Hemoglobin 7.9 g/dL (14.0-18.0); Mean Corpuscular HGB CONC 35.3 g/dL (32.0-36.0); Mean Corpuscular Hemoglobin 32.5 pg (27.0-31.0); Mean Corpuscular Volume 92.2 fL (78.0-98.0); Mean Platelet Volume 10.8 fL (7.4-10.4); Platelet Count 133 10x3/uL (130-400); RBC Distribution Width 15.4 % (11.5-14.5); Red Blood Cell (RBC) Count 2.43 mill/uL (4.70-6.10)
[2023-08-27 07:34] LABS: Hemoglobin A1c 5.7 % (4.0-6.0)
[2023-08-27 07:47] LABS: ALT (SGPT) 160 U/L (8-55); AST (SGOT) 186 U/L (5-34); Albumin 3.5 g/dL (3.4-4.8); Alkaline Phosphatase 128 U/L (40-110); Anion Gap 22 mmol/L (10-20); BUN (Urea Nitrogen) 102 mg/dL (8.4-25.7); Bilirubin, Total 0.8 mg/dL (0.2-1.2); Calc. Creatinine Clearance 11 mL/min (70-130); Carbon Dioxide 19 mmol/L (23-31); Cardiac Risk 8.3 (Less than 4.5); Chloride 107 mmol/L (98-107); Cholesterol 58 mg/dl (< 200 Desired); Estimated GFR 11; Globulin 2.5 g/dL (2.4-3.5); Glucose 178 mg/dL (80-115); HDL Cholesterol 7 mg/dL (>60 Neg Risk); LDL Cholesterol, Calculated 15 mg/dL; Sodium 145 mmol/L (136-145); Triglycerides 182 mg/dL (Less than 150)
[2023-08-27 07:51] LABS: Vancomycin, Random 111.7 ug/mL (See Comment)
[2023-08-27 08:01] LABS: Anisocytosis SLIGHT = 6-15 cells HPF (0-5); Band 10 % (5-11); Large Platelets 2.5 % (0-5); Lymphocytes 8 % (21-51); Monocytes 6 % (0-10); Neutrophil 76 % (42-75); Platelet Adequacy Comment Platelets Normal
[2023-08-27] MEDS: Hydrocortisone Sod Succ/PF 100 mg/2 ml Vial IVP SCH (08:37)
[2023-08-27] MEDS: Potassium Bicarbonate/Cit Ac 20 MEQ TAB PER TUBE SCH (10:03)
[2023-08-27] MEDS: Potassium Chloride 20 MEQ in Premix 1 BAG IVPB SCH ×2 (11:40→15:00)
[2023-08-27] MEDS: Albumin 25% 25 GM (100 mL) BOT IVPB SCH (11:55)
[2023-08-27 14:26] LABS: Potassium 2.9 mmol/L (3.5-5.1)
[2023-08-27] MEDS: Furosemide 40 MG (4 mL) VIAL SLOW IVP SCH (15:00)
[2023-08-27 15:01] LABS: Anion Gap 21 mmol/L (10-20); BUN (Urea Nitrogen) 102 mg/dL (8.4-25.7); Calc. Creatinine Clearance 11 mL/min (70-130); Calcium 9.1 mg/dL (7.8-10.44); Carbon Dioxide 22 mmol/L (23-31); Chloride 107 mmol/L (98-107); Estimated GFR 11; Glucose 155 mg/dL (80-115); Sodium 147 mmol/L (136-145)
[2023-08-27] MEDS: Piperacillin/Tazobactam 3.375 GM in Sodium Chloride 0.9% 100 ML IVPB SCH ×2 (16:43→20:26)
[2023-08-27] MEDS: Potassium Chloride 20 MEQ TAB PER TUBE SCH (17:38)
[2023-08-27] MEDS: Morphine 2 MG/ML VIAL SLOW IVP SCH ×2 (17:50→22:35)
[2023-08-27] MEDS: Famotidine/PF 20 mg/2ml Vial SLOW IVP SCH (20:27)
[2023-08-27 20:53] LABS: Anion Gap 24 mmol/L (10-20); BUN (Urea Nitrogen) 106 mg/dL (8.4-25.7); Calc. Creatinine Clearance 11 mL/min (70-130); Carbon Dioxide 20 mmol/L (23-31); Chloride 109 mmol/L (98-107); Estimated GFR 11; Glucose 148 mg/dL (80-115); Potassium 3.2 mmol/L (3.5-5.1); Sodium 150 mmol/L (136-145)
[2023-08-27] MEDS: Potassium Chloride 40 MEQ in Premix 1 BAG IVPB SCH (22:18)
[2023-08-27 22:31] LABS: Sodium, Urine 119 mmol/L (Not Available); Urea Nitrogen, Random Urine 226 mg/dl
[2023-08-28 05:28] VITALS: BMI 19.5
[2023-08-28 05:37] LABS: ALT (SGPT) 98 U/L (8-55); AST (SGOT) 75 U/L (5-34); Albumin 3.8 g/dL (3.4-4.8); Alkaline Phosphatase 116 U/L (40-110); Anion Gap 24 mmol/L (10-20); BUN (Urea Nitrogen) 109 mg/dL (8.4-25.7); Bilirubin, Total 1.8 mg/dL (0.2-1.2); Calc. Creatinine Clearance 11 mL/min (70-130); Calcium 9.4 mg/dL (7.8-10.44); Carbon Dioxide 22 mmol/L (23-31); Chloride 112 mmol/L (98-107); Estimated GFR 11; Globulin 2.6 g/dL (2.4-3.5); Glucose 133 mg/dL (80-115); Potassium 4.3 mmol/L (3.5-5.1); Protein, Total 6.4 g/dL (5.8-8.1); Sodium 154 mmol/L (136-145)
[2023-08-28] MEDS: Dextrose 5% in Water 1,000 ML IV SCH (05:54)
[2023-08-28 06:38] LABS: Hematocrit 26.9 % (42.0-52.0); Hemoglobin 9.1 g/dL (14.0-18.0); Mean Corpuscular HGB CONC 33.8 g/dL (32.0-36.0); Mean Corpuscular Hemoglobin 33.1 pg (27.0-31.0); Mean Corpuscular Volume 97.8 fL (78.0-98.0); Platelet Count 109 10x3/uL (130-400); RBC Distribution Width 15.9 % (11.5-14.5); Red Blood Cell (RBC) Count 2.75 mill/uL (4.70-6.10)
[2023-08-28 08:08] LABS: Anisocytosis MODERATE=16-30 cells HPF (0-5); Band 15 % (5-11); Large Platelets 4.3 % (0-5); Lymphocytes 17 % (21-51); Metamyelocyte 1 % (0-0); Monocytes 12 % (0-10); Neutrophil 55 % (42-75); Platelet Adequacy Comment Platelets Decreased; Polychromasia SLIGHT = 2-3 cells HPF (0-2); Schistocytes SLIGHT = 2-5 cells HPF (0-1)
[2023-08-28] MEDS: Morphine 4 MG/ML VIAL SLOW IVP PRN (08:33)
[2023-08-28 09:28] VITALS: TEMP 98.2
[2023-08-28] MEDS: Lorazepam 2 MG/ML VIAL SLOW IVP PRN (10:46)
[2023-08-28 11:17] VITALS: BMI 19.5
== END 2023-08-28 12:02 | disposition hospice, inpatient (51) | DRG 64 ==
LOC: ERS 09:42 → CCU 15:10
PROVIDERS: ADMIT Student in an Organized Health Care Education/Training Program; ATTEND Student in an Organized Health Care Education/Training Program
PROC: 4A133R1 Monitoring of Arterial Saturation, Peripheral, Percutaneous Approach (ICD-10-PCS; 2023-08-24)
PROC: 3E033XZ Introduction of Vasopressor into Peripheral Vein, Percutaneous Approach (ICD-10-PCS; 2023-08-24)
PROC: 4A00X4Z Measurement of Central Nervous Electrical Activity, External Approach (ICD-10-PCS; principal; 2023-08-26)
PROC: 30233J1 Transfusion of Nonautologous Serum Albumin into Peripheral Vein, Percutaneous Approach (ICD-10-PCS; 2023-08-27)
PROC: 5A0935A Assistance with Respiratory Ventilation, Less than 24 Consecutive Hours, High Flow/Velocity Cannula (ICD-10-PCS; 2023-08-27)
DX: I63.9 Cerebral infarction, unspecified (principal); E43 Unspecified severe protein-calorie malnutrition; N17.0 Acute kidney failure with tubular necrosis; G92.8 Other toxic encephalopathy; J96.01 Acute respiratory failure with hypoxia; J18.9 Pneumonia, unspecified organism; G06.2 Extradural and subdural abscess, unspecified; I50.32 Chronic diastolic (congestive) heart failure; Z68.1 Body mass index [BMI] 19.9 or less, adult; E87.20 Acidosis, unspecified; I76 Septic arterial embolism; M60.08 Infective myositis, other site; N14.19 Nephropathy induced by other drugs, medicaments and biological substances; T36.8X5A Adverse effect of other systemic antibiotics, initial encounter; I25.10 Atherosclerotic heart disease of native coronary artery without angina pectoris; E78.5 Hyperlipidemia, unspecified; Z79.899 Other long term (current) drug therapy; I25.2 Old myocardial infarction; Z98.890 Other specified postprocedural states; Z95.1 Presence of aortocoronary bypass graft; Z87.891 Personal history of nicotine dependence; E87.8 Other disorders of electrolyte and fluid balance, not elsewhere classified; E87.5 Hyperkalemia; E83.42 Hypomagnesemia; M46.40 Discitis, unspecified, site unspecified; I11.0 Hypertensive heart disease with heart failure; E87.6 Hypokalemia; Z51.5 Encounter for palliative care
CPT/HCPCS: 36415; 36416; 36600; 51702; 70450; 70551; 71045; 72141; 74018; 80053; 80061; 80202; 80306; 80307; 81001; 82140; 82533; 82550; 82570; 82805; 83036; 83605; 83690; 83735; 83880; 83930; 83935; 84145; 84300; 84443; 84484; 84540; 85025; 85610; 85730; 86141; 87040; 87077; 87086; 93005; 93010; 93306; 93880; 94760; 95700; 95712; 95819; 96361; 96374; 96375; J0878; J1100; J1450; J1644; J1720; J1815; J1940; J2060; J2248; J2270; J2272; J2310; J2405; J2543; J3411; J3475; J3480; J3490; J7042; J7070; P9047; S0028

== ENCOUNTER 2023-08-28 12:04 | Inpatient (IN) | payer OTHER ==
[2023-08-28 12:29] VITALS: BMI 18.3
[2023-08-28] MEDS: Lorazepam 2 MG/ML VIAL ONE (12:45)
[2023-08-28] MEDS ORDERED: Haloperidol Lactate 5 MG/ML VIAL SLOW IVP PRN (13:00)
[2023-08-28] MEDS ORDERED: Ondansetron PF 4 MG/2 ML Vial IVP PRN (13:00)
[2023-08-28] MEDS ORDERED: Hyoscyamine SL 0.125 MG TAB SL PRN (13:00)
[2023-08-28] MEDS ORDERED: Acetaminophen 650 MG Suppository PR PRN (13:00)
[2023-08-28] MEDS ORDERED: diphenhydrAMINE 50 MG/ML VIAL IVP PRN (13:00)
[2023-08-28] MEDS ORDERED: Scopolamine 1 mg/72 hour Patch TOP PRN (13:00)
[2023-08-28] MEDS ORDERED: Bisacodyl 10 MG SUPP PR PRN (13:02)
[2023-08-28] MEDS: Morphine 4 MG/ML VIAL SLOW IVP PRN (13:50)
[2023-08-28] MEDS: Lorazepam 2 MG/ML VIAL SLOW IVP PRN (13:50)
[2023-08-28] MEDS: Morphine 4 MG/ML VIAL ONE (13:53)
== END 2023-08-28 15:18 | disposition expired | DRG 951 ==
LOC: CCU 12:04
PROVIDERS: ADMIT Student in an Organized Health Care Education/Training Program; ATTEND Student in an Organized Health Care Education/Training Program
DX: Z51.5 Encounter for palliative care (principal); G93.41 Metabolic encephalopathy; J96.01 Acute respiratory failure with hypoxia; J69.0 Pneumonitis due to inhalation of food and vomit; I63.9 Cerebral infarction, unspecified; G06.2 Extradural and subdural abscess, unspecified; G06.1 Intraspinal abscess and granuloma; K72.00 Acute and subacute hepatic failure without coma; N17.9 Acute kidney failure, unspecified; E87.4 Mixed disorder of acid-base balance; E87.0 Hyperosmolality and hypernatremia; I76 Septic arterial embolism; M46.27 Osteomyelitis of vertebra, lumbosacral region; Z66 Do not resuscitate; I95.9 Hypotension, unspecified; E87.5 Hyperkalemia; E83.42 Hypomagnesemia; E87.8 Other disorders of electrolyte and fluid balance, not elsewhere classified; M46.47 Discitis, unspecified, lumbosacral region; I25.10 Atherosclerotic heart disease of native coronary artery without angina pectoris; D64.9 Anemia, unspecified
CPT/HCPCS: J2060; J2270